=== PATIENT | female | born 1950 | race Caucasian/White ===

== ENCOUNTER 2020-06-07 15:18 | Emergency (ER) | payer MEDICARE, SELFPAY ==
--- NOTE | 2020-06-07 | CT_ITS ---
EXAMINATION: CT ABDOMEN AND PELVIS WITH CONTRAST CLINICAL INFORMATION: Abdominal pain / diarrhea history of diverticulitis, SBO COMPARISON: None. TECHNIQUE: Multidetector volumetric imaging was performed from the superior aspect of the liver through the pubic symphysis following administration of 100 mL Omnipaque 300 intravenous contrast. Sagittal and coronal reformatted images were obtained on the technologist workstation.. This CT examination was performed using dose optimization techniques as appropriate, variously including the following: *Automated exposure control *Adjustment of mA and/or kV according to patient size (this includes techniques or standardized protocols for targeted exams where dose is matched to indication/reason for exam; i.e. extremities or head) *Use of iterative reconstruction technique DLP: 625 mGy-cm FINDINGS: LUNG BASES: The visualized lung bases are unremarkable. LIVER, GALLBLADDER, AND BILIARY TREE: There is diffuse fatty infiltration of the liver but no focal hepatic lesion nor biliary ductal dilatation. Gallstone seen in the dependent portion of the otherwise unremarkable gallbladder. PANCREAS: Unremarkable. SPLEEN: Unremarkable. ADRENAL GLANDS: Unremarkable. KIDNEYS AND URETERS: The kidneys are normal in size, shape, and attenuation. No hydronephrosis, hydroureter, or calculi seen. No perinephric stranding. BLADDER: Unremarkable. GASTROINTESTINAL TRACT: There is scattered colonic diverticulosis more so in the sigmoid colon. No focal colonic wall thickening or pericolonic inflammatory changes to suggest diverticulitis. Visualized small bowel is essentially unremarkable. Incidental duodenal diverticula in the second portion of the duodenum. ABDOMINAL WALL: Mild vascular calcification within the aorta LYMPHOVASCULAR STRUCTURES: Minimal vascular calcification within the aorta iliac system. No bulky adenopathy. PELVIC VISCERA: Unremarkable. OSSEOUS STRUCTURES: Unremarkable. IMPRESSION: Diffuse fatty infiltration the liver. Incidental gallstones. Diverticulosis. No acute intra-abdominal process seen.
[2020-06-07 15:37] VITALS: BP 160/64; PULSE 56; RESP 18; TEMP 36; O2SAT 96; BMI 33.5
--- NOTE | 2020-06-07 16:58 | ED.ABDPAIN ---
HPI - Abdominal Pain General Chief Complaint: Abdominal Pain <Mark Monteiro NP - Last Filed: 06/07/20 20:59> Stated Complaint: ABD PAIN <Mark Monteiro NP - Last Filed: 06/07/20 20:59> Time Seen by Provider: 06/07/20 16:57 <Mark Monteiro NP - Last Filed: 06/07/20 20:59> History of Present Illness HPI narrative: This is a pleasant 70-year-old female with past medical history that is significant for remote cardiac ablation around 2009 for SVT, history of SBO couple times in her teen years and early 20s requiring resection and history of recurrent diverticulitis presenting ambulatory via triage with complaint of diffuse lower abdominal pain going on for past several weeks she initially saw her primary care doctor for this was given a course of antibiotics several weeks ago thinking that maybe diverticulitis however the pain has persisted not gotten any better. Had a phone visit with the primary care doctor advised to come to the emergency room. She denies any fever chills. Positive diarrhea. No vomiting. No recent travel or sick contacts. <Mark Monteiro NP - Last Filed: 06/07/20 20:59> MD elicited complaint: abdominal pain <Mark Monteiro NP - Last Filed: 06/07/20 20:59> Pertinent past history: diverticulitis <Mark Monteiro NP - Last Filed: 06/07/20 20:59> Onset (ago): week(s) <Mark Monteiro NP - Last Filed: 06/07/20 20:59> Pain Consistency: constant <Mark Monteiro NP - Last Filed: 06/07/20 20:59> Location: diffuse <Mark Monteiro NP - Last Filed: 06/07/20 20:59> Severity: moderate <Mark Monteiro NP - Last Filed: 06/07/20 20:59> Quality: cramping <Mark Monteiro NP - Last Filed: 06/07/20 20:59> Radiation: none <Mark Monteiro NP - Last Filed: 06/07/20 20:59> Migration to: no migration <Mark Monteiro NP - Last Filed: 06/07/20 20:59> Exacerbating factors: nothing <Mark Monteiro NP - Last Filed: 06/07/20 20:59> Relieving factors: nothing <Mark Monteiro NP - Last Filed: 06/07/20 20:59> Related Data Home Medications: Previous Rx's Medication Instructions Recorded dicyclomine 20 mg PO BID PRN #14 tab 06/07/20 loperamide [Imodium A-D] 2 mg PO Q6H PRN #7 cap 06/07/20 <Mark Monteiro NP - Last Filed: 06/07/20 20:59> Allergies/Adverse Reactions: Allergies Allergy/AdvReac Type Severity Reaction Status Date / Time erythromycin base Allergy Mild HIVES Verified 06/07/20 15:43 [Erythromycin Base] Penicillins Allergy Mild HIVES Verified 06/07/20 15:43 metronidazole [Flagyl] Allergy Unknown nausea and Verified 10/03/17 00:00 vomiting penicillin V Allergy Unknown Hives Verified 10/03/17 00:00 <Mark Monteiro NP - Last Filed: 06/07/20 20:59> Review of Systems Review of Systems Constitutional: No Weight loss, No Fever, No Chills, No Night Sweats, No Fatigue, No Malaise ENT/Mouth: No Hearing loss, No Ear Pain, No Nasal Congestion, No Sinus Pain, No Hoarseness, No sore throat, No Rhinorrhea, No Swallowing Difficulty Eyes: No Eye Pain, No Swelling, No Redness, No Foreign Body, No Discharge, No Vision Changes Cardiovascular: No Chest Pain, No SOB, No Dyspnea on Exertion, No Orthopnea, No Edema, No Palpitations Respiratory: No Cough, No Sputum, No Wheezing, No Smoke Exposure, No Dyspnea Gastrointestinal: No Nausea, No Vomiting, + Diarrhea, No Constipation, + abdominal Pain, No Hematochezia, No Melena Genitourinary: no irregular bleeding, No Dysuria, No Urinary Frequency, No Hematuria, No Urinary Incontinence, No Urgency, No Flank Pain, No Urinary Flow Changes, No Hesitancy Musculoskeletal: No joint pain, No Myalgias, No Joint Swelling Skin: No Skin Lesions, No rash Neuro: No Weakness, No Numbness, No Paresthesias, No Loss of Consciousness, No Dizziness, No Headache Psych: No Anxiety/Panic, No Depression, No SI/HI/AH/VH, No Social Issues, Heme/Lymph: No Bruising, No Bleeding,No Lymphadenopathy Endocrine: No Polyuria, No Polydipsia, No Temperature Intolerance <Mark Monteiro NP - Last Filed: 06/07/20 20:59> Yes all other systems are reviewed and are negative <Mark Monteiro NP - Last Filed: 06/07/20 20:59> Constitutional: Reports as per HPI <Mark Monteiro NP - Last Filed: 06/07/20 20:59> Physical Exam Vital Signs and I&O and Narrative: Vital Signs and I&O: Vital Signs Temp 97.8 F 06/07/20 20:00 Pulse 57 06/07/20 20:00 Resp 16 06/07/20 20:00 BP 141/53 H 06/07/20 20:00 Pulse Ox 94 06/07/20 20:00 Intake & Output 06/07/20 06/07/20 06/08/20 06:59 18:59 06:59 Intake Total 1000 / 1000 Balance 1000 / 1000 Weight 86 kg Intake: Intake, IV Amoun t 1000 / 1000 0.9 % Sodium C hloride 1,000 ml 1000 / 1000 @ 999 mls/hr I VCONT .Q1H1M MADELAINE Rx#:[id number] Body Mass Index 33.5 <Mark Monteiro NP - Last Filed: 06/07/20 20:59> Vital Signs and I&O: Vital Signs Temp 97.8 F 06/07/20 20:00 Pulse 57 06/07/20 20:00 Resp 16 06/07/20 20:00 BP 141/53 H 06/07/20 20:00 Pulse Ox 94 06/07/20 20:00 Intake & Output 06/07/20 06/07/20 06/08/20 06:59 18:59 06:59 Intake Total 1000 / 1000 Balance 1000 / 1000 Weight 86 kg Intake: Intake, IV Amoun t 1000 / 1000 0.9 % Sodium C hloride 1,000 ml 1000 / 1000 @ 999 mls/hr I VCONT .Q1H1M MADELAINE Rx#:[id number] Body Mass Index 33.5 <Lebron Fernandez DO - Last Filed: 06/08/20 02:25> reviewed <Mark Monteiro NP - Last Filed: 06/07/20 20:59> Const: General: cooperative and healthy appearing; No acute distress or intoxicated appearing <[facility] Monteiro [facility] Last Filed: 06/07/20 20:59> Nutritional Appearance: average body habitus <[facility] Thania [facility] Last Filed: 06/07/20 20:59> Orientation/consciousness: patient oriented x3 <[facility] Monteiro [facility] Last Filed: 06/07/20 20:59> HENMT: Head: Yes normal to inspection <[facility] Monteiro, [facility] Last Filed: 06/07/20 20:59> Ears: hearing grossly normal bilaterally [facility] Last Filed: 06/07/20 20:59> Eyes: General: appearance normal, both eyes and all related structures <[facility] Monteiro, [facility] Last Filed: 06/07/20 20:59> Visual Valera: normal visual valera by confrontation <[facility] Monteiro, [facility] Last Filed: 06/07/20 20:59> Neck: Neck: Yes normal visual inspection <[facility] Monteiro, [facility] Last Filed: 06/07/20 20:59> Thyroid: Thyroid normal <[facility] Last Filed: 06/07/20 20:59> Chest: Chest palpation & inspection: normal inspection of the chest <[facility] Thania [facility] Last Filed: 06/07/20 20:59> Resp: Effort & Inspection: normal respiratory effort <[facility] Monteiro, [facility] Last Filed: 06/07/20 20:59> Cardio: Jugular venous distension: no JVD <[facility] Thania [facility] Last Filed: 06/07/20 20:59> GI: Inspection: Yes normal to inspection <[facility] Monteiro, [facility] Last Filed: 06/07/20 20:59> Percussion: Yes normal to percussion <[facility] Last Filed: 06/07/20 20:59> Auscultation: normal bowel sounds <[facility] Last Filed: 06/07/20 20:59> : General: Yes no CVA tenderness <[facility] Thania [facility] Last Filed: 06/07/20 20:59> Back/Spine/Pelvis: Back: no CVA tenderness <[facility] Thania [facility] Last Filed: 06/07/20 20:59> Skin: General skin exam: no rashes or lesions noted <Mark Monteiro NP - Last Filed: 06/07/20 20:59> Neuro: General: patient oriented x3 <Mark Monteiro NP - Last Filed: 06/07/20 20:59> Extrem: General: Yes normal to inspection <Mark Monteiro NP - Last Filed: 06/07/20 20:59> Course Reevaluation(s) Reevaluation #1: Labs overall stable. No leukocytosis. H&H stable. No acute electrolyte derangement. Renal function intact. Resting comfortably has had her abdominal /pelvis CT with IV contrast. Await results. <Mark Monteiro NP - Last Filed: 06/07/20 20:59> Reevaluation #2: CT findings reviewed. Has not had any diarrhea here. Stool sample ordered in computer will give her cup to provide for outpatient ordered. Will follow up with her GI tomorrow. Rx for Bentyl sent to her pharmacy. <Mark Monteiro NP - Last Filed: 06/07/20 20:59> MDM - Abdominal Pain MDM Narrative Medical decision making narrative: Hemodynamically stable. No signs or symptoms of systemic infection. Workup as follow. full re-evaluate and dispo per plan. <Mark Monteiro NP - Last Filed: 06/07/20 20:59> Differential Diagnosis Differential diagnosis: Likely abdominal pain, diverticulitis and gastroenteritis; Unlikely aortic dissection, acute appendicitis, bowel perforation, calculus of kidney, constipation, endometriosis, gastritis, mesenteric ischemia, ovarian cyst, pancreatitis, peptic ulcer disease, renal colic and small bowel obstruction <Mark Monteiro NP - Last Filed: 06/07/20 20:59> Medical Records Attestation: I reviewed the patient's medical records. <Mark Monteiro NP - Last Filed: 06/07/20 20:59> Lab Data Result diagrams: : 06/07/20 17:05 06/07/20 18:21 <Mark Monteiro NP - Last Filed: 06/07/20 20:59> Labs: Lab Results 06/07/20 06/07/20 06/07/20 Range/Units 17:05 17:05 17:05 WBC 7.6 (4.8-10.8) X10*3/uL RBC 4.78 (4.20-5.50) X10*6/uL Hgb 15.3 (12.0-16.0) g/dl Hct 44.2 (37-47) % MCV 92.5 (80-98) fL MCH 32.0 (27.0-33.0) pg MCHC 34.6 (31.0-35.0) g/dl RDW 12.4 (11.0-16.0) % Plt Count 212 (160-400) X10*3/uL MPV 10.7 (9.4-12.3) fL Immature Gran % (Auto) 0.3 (0.0-0.4) % Neut % (Auto) 63.7 (45-73) % Lymph % (Auto) 27.5 (20-40) % Rhea % (Auto) 6.2 (2-11) % Eos % (Auto) 1.6 (0-4) % Baso % (Auto) 0.7 (0-2) % Lymph # (Auto) 2.1 (1.2-4.9) X10*3/uL Rhea # (Auto) 0.5 (0.1-1.2) X10*3/uL Eos # (Auto) 0.1 (0.0-0.4) X10*3/uL Baso # (Auto) 0.1 (0.0-0.2) X10*3/uL Abs Immat Gran (auto) 0.02 (0.00-0.03) X10*3/uL Absolute Neuts (auto) 4.8 (2.0-8.3) X10*3/uL Absolute Nucleated RBC 0.000 (0.0-0.012) X10*3/uL Nucleated RBC % (auto) 0.0 (0.0-0.2) /100WBC Sodium Cancelled Potassium Cancelled Chloride Cancelled Carbon Dioxide Cancelled Anion Gap Cancelled BUN Cancelled Creatinine Cancelled Estim Creat Clear Calc Cancelled Estimated GFR Cancelled Random Glucose Cancelled Lactic Acid 1.7 (0.5-2.0) mmol/L Calcium Cancelled Total Bilirubin Cancelled Direct Bilirubin Cancelled AST Cancelled ALT Cancelled Alkaline Phosphatase Cancelled Total Protein Cancelled Albumin Cancelled Lipase Cancelled Urine Color Urine Appearance Urine pH (5.0-8.0) Ur Specific Jackson (1.005-1.025) Urine Protein (NEG-TRACE) MG/DL Urine Glucose (UA) (NEG) MG/DL Urine Ketones (NEG) MG/DL Urine Blood (NEG) Urine Nitrite (NEG) Ur Leukocyte Esterase (NEG) 06/07/20 06/07/20 Range/Units 17:11 18:21 WBC (4.8-10.8) X10*3/uL RBC (4.20-5.50) X10*6/uL Hgb (12.0-16.0) g/dl Hct (37-47) % MCV (80-98) fL MCH (27.0-33.0) pg MCHC (31.0-35.0) g/dl RDW (11.0-16.0) % Plt Count (160-400) X10*3/uL MPV (9.4-12.3) fL Immature Gran % (Auto) (0.0-0.4) % Neut % (Auto) (45-73) % Lymph % (Auto) (20-40) % Rhea % (Auto) (2-11) % Eos % (Auto) (0-4) % Baso % (Auto) (0-2) % Lymph # (Auto) (1.2-4.9) X10*3/uL Rhea # (Auto) (0.1-1.2) X10*3/uL Eos # (Auto) (0.0-0.4) X10*3/uL Baso # (Auto) (0.0-0.2) X10*3/uL Abs Immat Gran (auto) (0.00-0.03) X10*3/uL Absolute Neuts (auto) (2.0-8.3) X10*3/uL Absolute Nucleated RBC (0.0-0.012) X10*3/uL Nucleated RBC % (auto) (0.0-0.2) /100WBC Sodium 141 Potassium 4.2 Chloride 105 Carbon Dioxide 27 Anion Gap 13 BUN 9 Creatinine 0.73 Estim Creat Clear Calc 76.6 Estimated GFR > 60 Random Glucose 85 Lactic Acid (0.5-2.0) mmol/L Calcium 8.9 Total Bilirubin 0.5 Direct Bilirubin 0.2 AST 22 ALT 35 H Alkaline Phosphatase 60 Total Protein 5.9 L Albumin 3.8 Lipase 34 Urine Color YELLOW Urine Appearance CLEAR Urine pH 5.5 (5.0-8.0) Ur Specific Jackson 1.015 (1.005-1.025) Urine Protein NEG (NEG-TRACE) MG/DL Urine Glucose (UA) NEG (NEG) MG/DL Urine Ketones NEG (NEG) MG/DL Urine Blood NEG (NEG) Urine Nitrite NEG (NEG) Ur Leukocyte Esterase NEG (NEG) <Mark Monteiro MENTAL HEALTH NURSE PRACTITIONER - Last Filed: 06/07/20 20:59> Lab Results 06/07/20 06/07/20 06/07/20 Range/Units 17:05 17:05 17:05 WBC 7.6 (4.8-10.8) X10*3/uL RBC 4.78 (4.20-5.50) X10*6/uL Hgb 15.3 (12.0-16.0) g/dl Hct 44.2 (37-47) % MCV 92.5 (80-98) fL MCH 32.0 (27.0-33.0) pg MCHC 34.6 (31.0-35.0) g/dl RDW 12.4 (11.0-16.0) % Plt Count 212 (160-400) X10*3/uL MPV 10.7 (9.4-12.3) fL Immature Gran % (Auto) 0.3 (0.0-0.4) % Neut % (Auto) 63.7 (45-73) % Lymph % (Auto) 27.5 (20-40) % Rhea % (Auto) 6.2 (2-11) % Eos % (Auto) 1.6 (0-4) % Baso % (Auto) 0.7 (0-2) % Lymph # (Auto) 2.1 (1.2-4.9) X10*3/uL Rhea # (Auto) 0.5 (0.1-1.2) X10*3/uL Eos # (Auto) 0.1 (0.0-0.4) X10*3/uL Baso # (Auto) 0.1 (0.0-0.2) X10*3/uL Abs Immat Gran (auto) 0.02 (0.00-0.03) X10*3/uL Absolute Neuts (auto) 4.8 (2.0-8.3) X10*3/uL Absolute Nucleated RBC 0.000 (0.0-0.012) X10*3/uL Nucleated RBC % (auto) 0.0 (0.0-0.2) /100WBC Sodium Cancelled Potassium Cancelled Chloride Cancelled Carbon Dioxide Cancelled Anion Gap Cancelled BUN Cancelled Creatinine Cancelled Estim Creat Clear Calc Cancelled Estimated GFR Cancelled Random Glucose Cancelled Lactic Acid 1.7 (0.5-2.0) mmol/L Calcium Cancelled Total Bilirubin Cancelled Direct Bilirubin Cancelled AST Cancelled ALT Cancelled Alkaline Phosphatase Cancelled Total Protein Cancelled Albumin Cancelled Lipase Cancelled Urine Color Urine Appearance Urine pH (5.0-8.0) Ur Specific Jackson (1.005-1.025) Urine Protein (NEG-TRACE) MG/DL Urine Glucose (UA) (NEG) MG/DL Urine Ketones (NEG) MG/DL Urine Blood (NEG) Urine Nitrite (NEG) Ur Leukocyte Esterase (NEG) 06/07/20 06/07/20 Range/Units 17:11 18:21 WBC (4.8-10.8) X10*3/uL RBC (4.20-5.50) X10*6/uL Hgb (12.0-16.0) g/dl Hct (37-47) % MCV (80-98) fL MCH (27.0-33.0) pg MCHC (31.0-35.0) g/dl RDW (11.0-16.0) % Plt Count (160-400) X10*3/uL MPV (9.4-12.3) fL Immature Gran % (Auto) (0.0-0.4) % Neut % (Auto) (45-73) % Lymph % (Auto) (20-40) % Rhea % (Auto) (2-11) % Eos % (Auto) (0-4) % Baso % (Auto) (0-2) % Lymph # (Auto) (1.2-4.9) X10*3/uL Rhea # (Auto) (0.1-1.2) X10*3/uL Eos # (Auto) (0.0-0.4) X10*3/uL Baso # (Auto) (0.0-0.2) X10*3/uL Abs Immat Gran (auto) (0.00-0.03) X10*3/uL Absolute Neuts (auto) (2.0-8.3) X10*3/uL Absolute Nucleated RBC (0.0-0.012) X10*3/uL Nucleated RBC % (auto) (0.0-0.2) /100WBC Sodium 141 Potassium 4.2 Chloride 105 Carbon Dioxide 27 Anion Gap 13 BUN 9 Creatinine 0.73 Estim Creat Clear Calc 76.6 Estimated GFR > 60 Random Glucose 85 Lactic Acid (0.5-2.0) mmol/L Calcium 8.9 Total Bilirubin 0.5 Direct Bilirubin 0.2 AST 22 ALT 35 H Alkaline Phosphatase 60 Total Protein 5.9 L Albumin 3.8 Lipase 34 Urine Color YELLOW Urine Appearance CLEAR Urine pH 5.5 (5.0-8.0) Ur Specific Jackson 1.015 (1.005-1.025) Urine Protein NEG (NEG-TRACE) MG/DL Urine Glucose (UA) NEG (NEG) MG/DL Urine Ketones NEG (NEG) MG/DL Urine Blood NEG (NEG) Urine Nitrite NEG (NEG) Ur Leukocyte Esterase NEG (NEG) <Lebron Fernandez, - Last Filed: 06/08/20 02:25> Imaging Data Abdomen/pelvis CT with IV contrast: Radiologist's impression: [place] [id number] CT Scan Report Signed Patient: Moira Oconnell [facility]#: [id number] : 2Acct:[id number] Age/Sex: 70 / FADM Date: 06/07/20 Loc: HO.ED Attending Dr: Ordering Physician: Mark Monteiro NP Date of Service: 06/07/20 Procedure(s): CT abdomen pelvis w con Accession Number(s): [id number] cc: ~ EXAMINATION: CT ABDOMEN AND PELVIS WITH CONTRAST CLINICAL INFORMATION: Abdominal pain / diarrhea history of diverticulitis, SBO COMPARISON: None. TECHNIQUE: Multidetector volumetric imaging was performed from the superior aspect of the liver through the pubic symphysis following administration of 100 mL Omnipaque 300 intravenous contrast. Sagittal and coronal reformatted images were obtained on the technologist workstation.. This CT examination was performed using dose optimization techniques as appropriate, variously including the following: *Automated exposure control *Adjustment of mA and/or kV according to patient size (this includes techniques or standardized protocols for targeted exams where dose is matched to indication/reason for exam; i.e. extremities or head) *Use of iterative reconstruction technique DLP: 625 mGy-cm FINDINGS: LUNG BASES: The visualized lung bases are unremarkable. LIVER, GALLBLADDER, AND BILIARY TREE: There is diffuse fatty infiltration of the liver but no focal hepatic lesion nor biliary ductal dilatation. Gallstone seen in the dependent portion of the otherwise unremarkable gallbladder. PANCREAS: Unremarkable. SPLEEN: Unremarkable. ADRENAL GLANDS: Unremarkable. KIDNEYS AND URETERS: The kidneys are normal in size, shape, and attenuation. No hydronephrosis, hydroureter, or calculi seen. No perinephric stranding. BLADDER: Unremarkable. GASTROINTESTINAL TRACT: There is scattered colonic diverticulosis more so in the sigmoid colon. No focal colonic wall thickening or pericolonic inflammatory changes to suggest diverticulitis. Visualized small bowel is essentially unremarkable. Incidental duodenal diverticula in the second portion of the duodenum. ABDOMINAL WALL: Mild vascular calcification within the aorta LYMPHOVASCULAR STRUCTURES: Minimal vascular calcification within the aorta iliac system. No bulky adenopathy. PELVIC VISCERA: Unremarkable. OSSEOUS STRUCTURES: Unremarkable. IMPRESSION: Diffuse fatty infiltration the liver. Incidental gallstones. Diverticulosis. No acute intra-abdominal process seen. Dictated By:JERE HANNAH MD Signed By:<Electronically signed by JERE HANNAH MD in OV>06/07/201957 DD/ 43 TD/TT: Prenatal Genetic Counselor: KELVIN <Mark Monteiro NP - Last Filed: 06/07/20 20:59> Discharge Plan Discharge Clinical Impression: Abdominal pain, Diarrhea <MAAME Yanez Last Filed: 06/07/20 20:59> Patient Disposition: Home, Self-Care <Mark Monteiro NP - Last Filed: 06/07/20 20:59> Instructions: Acute Diarrhea (ED), Abdominal Pain (ED) <MAAME Yanez Last Filed: 06/07/20 20:59> Prescriptions: New dicyclomine 20 mg tablet 20 mg PO BID PRN (Reason: abdominal pain) Qty: 14 RF: 0 loperamide [Imodium A-D] 2 mg capsule 2 mg PO Q6H PRN (Reason: loose stool) Qty: 7 RF: 0 <Mark Monteiro NP - Last Filed: 06/07/20 20:59> Referrals: Edin Ureña [Physician] - 2 days Phillip Frazier MD [Primary Care Provider] - 1 week <Mark Monteiro NP - Last Filed: 06/07/20 20:59> Interventions: ED Discharge Assessment Last Done: 06/07/20 21:07 <Mark Monteiro NP - Last Filed: 06/07/20 20:59> Discharge Date/Time: 06/07/20 21:10 <Mark Monteiro NP - Last Filed: 06/07/20 20:59> [facility] Past Medical History Attestation statement: The following information was validated with the patient. <Mark Monteiro NP - Last Filed: 06/07/20 20:59> Medical History: Medical History (Updated 06/08/20 @ 00:00 by Den Mckinney) Bowel obstruction Diverticulitis Postoperative intestinal obstruction <Mark Monteiro NP - Last Filed: 06/07/20 20:59> Surgical History: Surgical History (Updated 06/07/20 @ 15:42 by Jayda Nova) History of cardiac radiofrequency ablation <Mark Monteiro NP - Last Filed: 06/07/20 20:59> Social History Social History: Social History Smoking Status: Current every day smoker Substance Use Type: Marijuana Substance Use Frequency: Occasionally Advance Directives: No Advance Directives Information Provided: Yes <Mark Monteiro NP - Last Filed: 06/07/20 20:59>
[2020-06-07 17:14] LABS: MANUAL DIFF FLAG NO
[2020-06-07 17:18] VITALS: BP 154/67; PULSE 53; RESP 17
[2020-06-07 17:20] LABS: Basophils Absolute Auto 0.1 X10*3/uL (0.0-0.2); Basophils Percent Auto 0.7 % (0-2); Eosinophils Absolute Auto 0.1 X10*3/uL (0.0-0.4); Eosinophils Percent Auto 1.6 % (0-4); Hematocrit 44.2 % (37-47); Hemoglobin 15.3 g/dl (12.0-16.0); Imm Gran Abs Auto 0.02 X10*3/uL (0.00-0.03); Imm Gran Pct Auto 0.3 % (0.0-0.4); Lymphocytes Absolute Auto 2.1 X10*3/uL (1.2-4.9); Lymphocytes Percent Auto 27.5 % (20-40); Mean Corpuscular HGB Conc 34.6 g/dl (31.0-35.0); Mean Corpuscular Volume 92.5 fL (80-98); Mean Platelet Volume 10.7 fL (9.4-12.3); Monocytes Absolute Auto 0.5 X10*3/uL (0.1-1.2); Monocytes Percent Auto 6.2 % (2-11); Neutrophils Absolute Auto 4.8 X10*3/uL (2.0-8.3); Neutrophils Percent Auto 63.7 % (45-73); Platelet Count 212 X10*3/uL (160-400); Red Blood Count 4.78 X10*6/uL (4.20-5.50); Red Cell Distribution Width 12.4 % (11.0-16.0); White Blood Count 7.6 X10*3/uL (4.8-10.8)
[2020-06-07] MEDS: 0.9 % Sodium Chloride 1,000 ML 999 ML IVCONT (17:23)
[2020-06-07 17:32] LABS: Glucose Urine UA NEG (NEG); Leukocyte Esterase Urine NEG (NEG); Nitrite Urine NEG (NEG); PH 5.5 (5.0-8.0); Specific Gravity - Urine 1.015 (1.005-1.025); Urine Blood NEG (NEG); Urine Ketones NEG (NEG); Urine Protein NEG (NEG-TRACE)
[2020-06-07 17:34] LABS: Lactic Acid 1.7 mmol/L (0.5-2.0)
[2020-06-07 17:37] LABS: Appearance Urine CLEAR; Color Urine YELLOW
[2020-06-07 18:55] LABS: Alanine Aminotransferase 35 U/L (0-31); Albumin Level 3.8 g/dL (3.5-5.0); Alkaline Phosphatase 60 U/L (39-117); Anion Gap 13 (12-20); Aspartate Amino Transferase 22 U/L (5-31); Bilirubin Direct 0.2 mg/dL (0.0-0.5); Bilirubin Total 0.5 mg/dL (0.0-1.0); Blood Urea Nitrogen 9 mg/dL (9-16); Calcium 8.9 mg/dL (8.4-10.2); Carbon Dioxide 27 mmol/L (22-29); Chloride 105 mmol/L (96-108); Creatinine Clr Calc Pharmacy 76.6; Estimated Glomerular Filt Rate > 60; Glucose Random 85 mg/dL (60-115); Lipase 34 U/L (8-78); Potassium 4.2 mmol/l (3.3-5.1); Sodium 141 mmol/L (135-145); Total Protein 5.9 g/dL (6.5-8.0)
[2020-06-07] MEDS: iohexoL 350 MG/ML 100 ML INFUS..BTL IV (19:48)
[2020-06-07 20:00] VITALS: BP 141/53; PULSE 57; RESP 16; TEMP 36.6; O2SAT 94
== END 2020-06-07 21:10 | disposition home or self-care (01) ==
PROVIDERS: Nurse Practitioner Primary Care; Emergency Provider Emergency Medicine; PCP Family Medicine
DX: R10.9 Unspecified abdominal pain (principal); R19.7 Diarrhea, unspecified
CPT/HCPCS: 36415; 74177; 80048; 80076; 81003; 83605; 83690; 85025; 96360; 99284

== ENCOUNTER 2020-06-29 13:19 | Outpatient (REF) | payer MEDICARE, SELFPAY | END 2020-06-29 13:20 | disposition home or self-care (01) | LOC: HO.LAB 13:19 | PROVIDERS: Visit Provider Internal Medicine | DX: Z20.828 Contact with and (suspected) exposure to other viral communicable diseases (principal) | CPT/HCPCS: 87635 ==

== ENCOUNTER 2020-12-13 13:55 | Outpatient (REF) | payer MEDICARE, SELFPAY ==
[2020-12-13 15:32] LABS: COVID-19 Test Negative (Negative)
== END 2020-12-13 13:56 | disposition home or self-care (01) ==
LOC: HO.LAB 13:55
PROVIDERS: Visit Provider Internal Medicine
DX: Z20.822 Contact with and (suspected) exposure to COVID-19 (principal)
CPT/HCPCS: 36415; 87635; C9803

== ENCOUNTER 2021-02-07 09:15 | Outpatient (REF) | payer MEDICARE, SELFPAY ==
--- NOTE | ~2021-02-07 | CT_ITS ---
EXAMINATION: CT ABDOMEN AND PELVIS WITH CONTRAST CLINICAL INFORMATION: Abdominal pain. Rule out diverticulitis. COMPARISON: Previous CT of the abdomen and pelvis June 2020 TECHNIQUE: Multidetector volumetric images were obtained from the superior aspect of the liver through the pubic symphysis following administration 85 mL of Omnipaque 350 intravenous contrast. Sagittal and coronal reformatted images were obtained on the technologist's workstation. Oral contrast: Yes This CT examination was performed using dose optimization techniques as appropriate, variously including the following: *Automated exposure control *Adjustment of mA and/or kV according to patient size (this includes techniques or standardized protocols for targeted exams where dose is matched to indication/reason for exam; i.e. extremities or head) *Use of iterative reconstruction technique DLP: 433 mGy-cm FINDINGS: LUNG BASES: The visualized lung bases are unremarkable. LIVER, GALLBLADDER, AND BILIARY TREE: The liver is low in attenuation suggestive of fatty infiltration. No focal liver lesion is seen. There are gallstones in the gallbladder. There is no biliary duct dilatation.. PANCREAS: Unremarkable. SPLEEN: Unremarkable. ADRENAL GLANDS: Unremarkable. KIDNEYS AND URETERS: The kidneys are normal in size, shape, and attenuation. No hydronephrosis, hydroureter, or calculi seen. No perinephric stranding. BLADDER: Not optimally distended. GASTROINTESTINAL TRACT: There is diverticulosis of the small bowel and colon. No evidence of diverticulitis is seen. The small and large bowel are otherwise unremarkable. The appendix is not identified. ABDOMINAL WALL: There is a small umbilical hernia containing fat. LYMPH NODES: Normal. VASCULAR: Unremarkable. PELVIC VISCERA: There is a small 1 cm high attenuation or enhancing area in the posterior body of the uterus questionable for a fibroid. Uterus and adnexa are otherwise unremarkable. OSSEOUS STRUCTURES: Unremarkable. CT/CT abdomen pelvis w con IMPRESSION: Diverticulosis of the small and large bowel. No evidence of diverticulitis. Fatty liver. Gallstones.
[2021-02-07 10:20] LABS: Blood Urea Nitrogen 7 mg/dL (9-16); Estimated Glomerular Filt Rate > 60
[2021-02-07] MEDS: iohexoL 350 MG/ML 100 ML INFUS..BTL 85 ML IV (11:48)
== END 2021-02-07 09:16 | disposition home or self-care (01) ==
LOC: HO.CT 09:15
PROVIDERS: PCP Family Medicine; Visit Provider Nurse Practitioner Family
DX: R10.9 Unspecified abdominal pain (principal); K57.50 Diverticulosis of both small and large intestine without perforation or abscess without bleeding
CPT/HCPCS: 36415; 74177; 82565; 84520; Q9967

== ENCOUNTER 2024-01-07 15:00 | Outpatient (AMB) | payer MEDICARE, SELFPAY ==
--- NOTE | 2024-01-07 15:04 | MHC.OFFVIS ---
Vital Signs 01/07/24 15:14 Height 5 ft 3 in Weight 181 lb BMI 32.1 BP 141/71 H Blood Pressure Location Rt brachial Position Sitting Pulse 52 Intake Visit Reasons: Gallstones Intake Note: Patient referred for gallstones accidental finding in recent chest x-ray. Patient c/o: denies pain. Refer to [facility] Chest CT: 12-10-23. Geography Department Chair Required: No Accompanied by: Self / Same As Patient Allergies erythromycin base [Erythromycin Base] Allergy (Mild, Verified 01/07/24 15:04) HIVES Penicillins Allergy (Mild, Verified 01/07/24 15:04) HIVES metronidazole [Flagyl] Allergy (Unknown, Verified 01/07/24 15:04) nausea and vomiting penicillin V Allergy (Unknown, Verified 01/07/24 15:04) Hives HPI Comments Details: Patient presents here for evaluation of incidentally found gallstones and umbilical hernia. Patient has no biliary symptoms. She has not had fatty food intolerance. She had no idea that she even had an umbilical hernia which is also not symptomatic. She otherwise tolerates a diet and has regular bowel habits. Chart was reviewed and patient evaluated [facility] Medical History (Updated 01/07/24 @ 15:13 by DAHIANA Mullins) Appendix abscess Abdominal hernia with obstruction Postoperative intestinal obstruction Diverticulitis Bowel obstruction Surgical History (Updated 01/07/24 @ 15:44 by Naga Morel MD) History of cardiac radiofrequency ablation Social History (Updated 01/07/24 @ 15:13 by DAHIANA Mullins) Alcohol intake: never Patient Tobacco Use Status: Never used Tobacco Substance Use Type: Marijuana Physical Exam Vital Signs: Last Vital Signs Pulse 52 01/07/24 15:14 BP 141/71 H 01/07/24 15:14 BMI result Body Mass Index 32.1 Const Other: Very pleasant female in no acute distress GI Other: Patient was examined both supine and standing with Valsalva. Moderately corpulent abdomen. Very small reducible umbilical hernia. Bilateral groin exam negative. Abdomen is otherwise benign Assessment & Plan Assessment & Plan (1) Asymptomatic gallstones: Code(s): K80.20 - Calculus of gallbladder without cholecystitis without obstruction Category: Surgical (2) Reducible umbilical hernia: Code(s): K42.9 - Umbilical hernia without obstruction or gangrene Category: Surgical Plan Patient has an asymptomatic umbilical hernia and asymptomatic gallstones. No surgical intervention is required at this time. Should the patient have any symptoms my of the 1 of these or any other surgical issues, she has been instructed to contact the office. Otherwise she will follow-up p.r.n.. All questions answered. Coding Level of Care Code New Pt Level 4 (19229) Diagnoses Asymptomatic gallstones K80.20 Reducible umbilical hernia K42.9
[2024-01-07 15:14] VITALS: BP 141/71; PULSE 52; BMI 32.1
== END 2024-01-07 15:49 | disposition home or self-care (01) ==
PROVIDERS: PCP Nurse Practitioner Family; Visit Provider Surgery
DX: K80.20 Calculus of gallbladder without cholecystitis without obstruction (principal); K42.9 Umbilical hernia without obstruction or gangrene
CPT/HCPCS: 99204

== ENCOUNTER → 2024-01-07 15:00 | Outpatient (BNVA) | payer MEDICARE, SELFPAY | PROVIDERS: PCP Nurse Practitioner Family; Visit Provider Surgery | DX: K80.20 Calculus of gallbladder without cholecystitis without obstruction (principal); K42.9 Umbilical hernia without obstruction or gangrene | CPT/HCPCS: 99202 ==

== ENCOUNTER 2024-02-17 14:53 | Outpatient (AMB) | payer MEDICARE, SELFPAY ==
[2024-02-17 15:09] VITALS: BP 122/70; PULSE 51; O2SAT 94; BMI 31.9
--- NOTE | 2024-02-17 15:09 | A.OFFVIS_ITS ---
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 The patient is a loco 73 year woman who is a former smoker presenting with worsening shortness of breath and hypoxia. Apparently back in November she was having a cough for some time. She was having some shortness breath. She went to see her primary care where she was noted to be hypoxic down to 90%. Then they called the ambulance and she was taken to [facility]. There she was actually hypoxic even down to the 80s. She was placed on 5 L of oxygen maintaining a pulse ox 96%. She was admitted to the hospital as part of the workup she did have a D-dimer that was negative. Therefore she did not need further evaluation for blood clot further evaluation. She did have a CT scan of the chest without contrast. I did review it personally with the patient. She did have some areas of airspace disease in the right base suggesting potential bronchopneumonia. Areas also has trace amount of pleural fluid. She did receive ceftriaxone azithromycin as far as treating her for lower respiratory infection and she was discharged off oxygen to home. During the hospitalization she also had an echocardiogram which reviewed which demonstrated a normal EF although she did have diastolic dysfunction 2+ and she also had borderline pulmonary hypertension. She does have significant daytime drowsiness and the patient does have evidence of sleep apnea. She does have cardiovascular risk factors in his sleep study is warranted at this time. During the office visit we also did go for brief walking oximetry and she did desaturate down to about 92% with activity. The patient does not qualify for oxygen which is reassuring this suggests the possibility of pulmonary vascular disease. On a side note she also was noted to have nasal polyps and she was referred to ENT and currently being evaluated for that. PFSH Medical History (Updated 02/17/24 @ 23:28 by Jorge L Mcmanus MD) SVT (supraventricular tachycardia) Nasal polyps Diastolic dysfunction Pulmonary hypertension Hypoxia Appendix abscess Abdominal hernia with obstruction Postoperative intestinal obstruction Diverticulitis Bowel obstruction Surgical History (Updated 01/07/24 @ 15:44 by Naga Morel MD) History of cardiac radiofrequency ablation Social History (Updated 01/07/24 @ 15:13 by DAHIANA Mullins) Alcohol intake: never Patient Tobacco Use Status: Never used Tobacco Substance Use Type: Marijuana Review of Systems Const Reports daytime sleepiness, Denies fever(s), Reports headache(s), Reports snoring and Reports stops breathing during sleep Eyes Reports no additional complaints ENT Reports headache(s), Reports nasal congestion, Reports nasal discharge and Reports nasal obstruction Card Denies chest pain and Reports dyspnea on exertion Resp Reports cough, Reports dyspnea on exertion, Reports snoring and Denies wheezing GI Reports no additional complaints Musc Reports no additional complaints Skin/Breast Denies rash Neuro Reports headache(s) Micky/Lymph Denies easy bleeding Aller/Immun Denies wheezing Physical Exam Vital Signs: Last Vital Signs Pulse 51 02/17/24 15:09 BP 122/70 02/17/24 15:09 Pulse Ox 94 02/17/24 15:09 Oxygen Delivery Method Room Air 02/17/24 15:09 BMI result Body Mass Index 31.9 Const General: comfortable HEENT Head: Yes normocephalic Neck Neck: Yes supple Chest Chest palpation & inspection: normal inspection of the chest Resp Effort & Inspection: normal respiratory effort Auscultation: clear to auscultation bilaterally Cardio Rate: regular rate Rhythm: regular rhythm Heart sounds: S1 normal heart sound present and S2 normal heart sound present GI Palpation (GI): Soft to palpation Skin General skin exam: no rashes or lesions noted Extrem General: No clubbing and No cyanosis Results Reviewed Results Reviewed: personally reviewed CT chest with airspace disease in the RLL with trace pleural effusion ECHO 2+diastolic dysfuction, boderline high PA pressures Assessment & Plan Assessment & Plan (1) Hypoxia: Code(s): R09.02 - Hypoxemia Category: Medical (2) ALDAIR (obstructive sleep apnea): Code(s): G47.33 - Obstructive sleep apnea (adult) (pediatric) Category: Medical (3) Pulmonary hypertension: Comment: boderline Code(s): I27.20 - Pulmonary hypertension, unspecified Category: Medical (4) Diastolic dysfunction: Code(s): I51.89 - Other ill-defined heart diseases Category: Medical (5) Reactive airway disease: Code(s): J45.909 - Unspecified asthma, uncomplicated Category: Medical Qualifiers: Asthma severity: moderate Asthma persistence: persistent Asthma complication type: uncomplicated Qualified Code(s): J45.40 - Moderate persistent asthma, uncomplicated (6) Nasal polyps: Code(s): J33.9 - Nasal polyp, unspecified Category: Medical Plan continue Breo PFTs Home PSG consider bubble study continue fluticasone nasal spray F/U 2-3 months Orders: Orders PFT pulmonary function test Today G47.33 - Obstructive sleep apnea (adult) (pediatric) RT home sleep study Today G47.33 - Obstructive sleep apnea (adult) (pediatric) Medications: New fluticasone propionate 50 mcg/actuation (Flonase Allergy Relief) administer into each nostril 2 sprays intranasal DAILY 30 days 15.8 mL 12RF Coding Level of Care Code New Pt Level 5 (33929) Diagnoses Hypoxia R09.02 ALDAIR (obstructive sleep apnea) G47.33 Pulmonary hypertension I27.20 Diastolic dysfunction I51.89 Moderate persistent reactive airway disease without complication J45.40 Asthma severity: moderate Asthma persistence: persistent Asthma complication type: uncomplicated Nasal polyps J33.9 Time Spent (min) 60
== END 2024-02-17 15:40 | disposition home or self-care (01) ==
PROVIDERS: PCP Nurse Practitioner Family; Referring Provider Nurse Practitioner Family; Visit Provider Hospitalist
DX: R09.02 Hypoxemia (principal); G47.33 Obstructive sleep apnea (adult) (pediatric); I27.20 Pulmonary hypertension, unspecified; J45.40 Moderate persistent asthma, uncomplicated; I51.89 Other ill-defined heart diseases; J33.9 Nasal polyp, unspecified
CPT/HCPCS: 99205

== ENCOUNTER → 2024-02-17 14:53 | Outpatient (BNVA) | payer MEDICARE, SELFPAY | PROVIDERS: PCP Nurse Practitioner Family; Referring Provider Nurse Practitioner Family; Visit Provider Hospitalist | DX: R09.02 Hypoxemia (principal); G47.33 Obstructive sleep apnea (adult) (pediatric); I27.20 Pulmonary hypertension, unspecified; I51.89 Other ill-defined heart diseases; J45.40 Moderate persistent asthma, uncomplicated; J33.9 Nasal polyp, unspecified | CPT/HCPCS: 99202 ==

== ENCOUNTER → 2024-04-05 14:54 | Outpatient (REF) | payer MEDICARE, SELFPAY | LOC: HO.SL 14:54 | PROVIDERS: PCP Family Medicine; Visit Provider Hospitalist | DX: G47.33 Obstructive sleep apnea (adult) (pediatric) (principal) | CPT/HCPCS: 95806 ==

== ENCOUNTER → 2024-04-06 15:12 | Outpatient (BNV) | payer MEDICARE, SELFPAY | PROVIDERS: PCP Family Medicine; Visit Provider Internal Medicine | DX: G47.33 Obstructive sleep apnea (adult) (pediatric) (principal) | CPT/HCPCS: 95806 ==

== ENCOUNTER 2024-05-27 14:05 | Outpatient (AMB) | payer MEDICARE, SELFPAY ==
--- NOTE | 2024-05-27 14:10 | MHC.OFFVIS ---
Vital Signs 05/27/24 14:11 Height 5 ft 3 in Weight 174 lb BMI 30.8 BP 120/72 Blood Pressure Location Lt brachial Position Sitting Pulse 44 L Pulse Source Pulse Oximeter Pulse Oximetry (%) 95 Oxygen Delivery Method Room Air Intake Visit Reasons: Hypoxia/SOB Seasonal Delivery Driver Required: No Allergies erythromycin base [Erythromycin Base] Allergy (Mild, Verified 05/27/24 14:16) HIVES Penicillins Allergy (Mild, Verified 05/27/24 14:16) HIVES metronidazole [Flagyl] Allergy (Unknown, Verified 05/27/24 14:16) nausea and vomiting penicillin V Allergy (Unknown, Verified 05/27/24 14:16) Hives HPI Comments Details: The patient is a loco 74 year woman who is a former smoker presenting with worsening shortness of breath and hypoxia. Apparently back in November she was having a cough for some time. She was having some shortness breath. She went to see her primary care where she was noted to be hypoxic down to 90%. Then they called the ambulance and she was taken to [facility]. There she was actually hypoxic even down to the 80s. She was placed on 5 L of oxygen maintaining a pulse ox 96%. She was admitted to the hospital as part of the workup she did have a D-dimer that was negative. Therefore she did not need further evaluation for blood clot further evaluation. She did have a CT scan of the chest without contrast. I did review it personally with the patient. She did have some areas of airspace disease in the right base suggesting potential bronchopneumonia. Areas also has trace amount of pleural fluid. She did receive ceftriaxone azithromycin as far as treating her for lower respiratory infection and she was discharged off oxygen to home. During the hospitalization she also had an echocardiogram which reviewed which demonstrated a normal EF although she did have diastolic dysfunction 2+ and she also had borderline pulmonary hypertension. She does have significant daytime drowsiness and the patient does have evidence of sleep apnea. She does have cardiovascular risk factors in his sleep study is warranted at this time. During the office visit we also did go for brief walking oximetry and she did desaturate down to about 92% with activity. The patient does not qualify for oxygen which is reassuring this suggests the possibility of pulmonary vascular disease. On a side note she also was noted to have nasal polyps and she was referred to ENT and currently being evaluated for that. 05/27/2024 the patient is here for a pulmonary follow-up visit. Overall the patient has been doing fairly well. She does have daytime drowsiness. Her [place] score is elevated 07/25. The patient also has evidence of pulmonary hypertension. She did have a sleep study. We did review it. She has severe sleep apnea based on the study. She has significant hypoxia during the study as well. Likely contributing to her pulmonary hypertension. Therefore, we talked about the gravity of the situation and for her to treat this condition as soon as possible. I am going to order a APAP from a [facility] locally. The patient will be set up as soon as possible. She has not had her pulmonary function studies as of yet. Overall she is doing okay. She still having dyspnea on exertion mild in severity. Will have her come back in 3 months so we can address how she is responding to the CPAP and also review her PFTs at that time. [facility] Medical History (Updated 05/27/24 @ 14:53 by Jorge L Mcmanus MD) SVT (supraventricular tachycardia) Nasal polyps Diastolic dysfunction Pulmonary hypertension Hypoxia Appendix abscess Abdominal hernia with obstruction Postoperative intestinal obstruction Diverticulitis Bowel obstruction Surgical History (Updated 01/07/24 @ 15:44 by Naga Morel MD) History of cardiac radiofrequency ablation Social History (Updated 05/27/24 @ 14:17 by DAHIANA Mark) Alcohol intake: never Patient Tobacco Use Status: Former Tobacco user Years Smoked: 55 Substance Use Type: Marijuana Review of Systems Const Reports daytime sleepiness, Denies fever(s), Reports headache(s), Reports snoring and Reports stops breathing during sleep Eyes Reports no additional complaints ENT Reports headache(s), Reports nasal congestion, Reports nasal discharge and Reports nasal obstruction Card Denies chest pain and Reports dyspnea on exertion Resp Reports cough, Reports dyspnea on exertion, Reports snoring and Denies wheezing GI Reports no additional complaints Musc Reports no additional complaints Skin/Breast Denies rash Neuro Reports headache(s) Micky/Lymph Denies easy bleeding Aller/Immun Denies wheezing Physical Exam Vital Signs: Last Vital Signs Pulse 44 L 05/27/24 14:11 BP 120/72 05/27/24 14:11 Pulse Ox 95 05/27/24 14:11 Oxygen Delivery Method Room Air 05/27/24 14:11 BMI result Body Mass Index 30.8 Const General: comfortable HEENT Head: Yes normocephalic Neck Neck: Yes supple Chest Chest palpation & inspection: normal inspection of the chest Resp Effort & Inspection: normal respiratory effort Auscultation: clear to auscultation bilaterally Cardio Rate: regular rate Rhythm: regular rhythm Heart sounds: S1 normal heart sound present and S2 normal heart sound present GI Palpation (GI): Soft to palpation Skin General skin exam: no rashes or lesions noted Extrem General: No clubbing and No cyanosis Assessment & Plan Assessment & Plan (1) Hypoxia: Code(s): R09.02 - Hypoxemia Category: Medical (2) ALDAIR (obstructive sleep apnea): Comment: severe Code(s): G47.33 - Obstructive sleep apnea (adult) (pediatric) Category: Medical (3) Pulmonary hypertension: Comment: emmettesther Code(s): I27.20 - Pulmonary hypertension, unspecified Category: Medical (4) Diastolic dysfunction: Code(s): I51.89 - Other ill-defined heart diseases Category: Medical (5) Reactive airway disease: Code(s): J45.909 - Unspecified asthma, uncomplicated Category: Medical Qualifiers: Asthma severity: moderate Asthma persistence: persistent Asthma complication type: uncomplicated Qualified Code(s): J45.40 - Moderate persistent asthma, uncomplicated (6) Nasal polyps: Code(s): J33.9 - Nasal polyp, unspecified Category: Medical Plan continue Breo PFTs start APAP, HORTENCIA consider bubble study continue fluticasone nasal spray F/U 2-3 months Coding Level of Care Code Est Pt Level 4 (40950) Diagnoses Hypoxia R09.02 ALDAIR (obstructive sleep apnea) G47.33 Pulmonary hypertension I27.20 Diastolic dysfunction I51.89 Moderate persistent reactive airway disease without complication J45.40 Asthma severity: moderate Asthma persistence: persistent Asthma complication type: uncomplicated Nasal polyps J33.9 Time Spent (min) 16
[2024-05-27 14:11] VITALS: BP 120/72; PULSE 44; O2SAT 95; BMI 30.8
== END 2024-05-27 14:43 | disposition home or self-care (01) ==
PROVIDERS: PCP Nurse Practitioner Family; Visit Provider Hospitalist
DX: R09.02 Hypoxemia (principal); G47.33 Obstructive sleep apnea (adult) (pediatric); I27.20 Pulmonary hypertension, unspecified; I51.89 Other ill-defined heart diseases; J45.40 Moderate persistent asthma, uncomplicated; J33.9 Nasal polyp, unspecified
CPT/HCPCS: 99214

== ENCOUNTER → 2024-05-27 14:05 | Outpatient (BNVA) | payer MEDICARE, SELFPAY | PROVIDERS: PCP Nurse Practitioner Family; Visit Provider Hospitalist | DX: J45.40 Moderate persistent asthma, uncomplicated (principal); J33.9 Nasal polyp, unspecified; I27.20 Pulmonary hypertension, unspecified; I51.89 Other ill-defined heart diseases; R09.02 Hypoxemia; G47.33 Obstructive sleep apnea (adult) (pediatric); Z99.81 Dependence on supplemental oxygen | CPT/HCPCS: 99212 ==

== ENCOUNTER 2024-06-02 15:01 | Outpatient (REF) | payer MEDICARE, SELFPAY ==
--- NOTE | 2024-06-02 15:58 | PFT_ITS ---
Flows: FEV1: 95 % of predicted at 1.98 L FVC: 100 % of predicted at 2.68 L FEV1/FVC: 74 % Bronchodilator response: Absent Volumes: Total lung capacity: 90 % of predicted at 4.33 L Residual volume: 86 % of predicted at 1.65 L Slow vital capacity: 95 % of predicted at 2.68 L Expiratory reserve volume: 59 % of predicted at 0.40 L Diffusion capacity: Normal Impression: No obstructive or restrictive ventilatory defect. No bronchodilator response. Normal pulmonary function test. MTDD
== END 2024-06-02 15:02 | disposition home or self-care (01) ==
LOC: HO.RESP 15:01
PROVIDERS: PCP Family Medicine; Visit Provider Hospitalist
DX: G47.33 Obstructive sleep apnea (adult) (pediatric) (principal)
CPT/HCPCS: 94640

== ENCOUNTER 2024-09-29 14:00 | Outpatient (REF) | payer MEDICARE, SELFPAY ==
--- OUTSIDE RECORDS SUMMARY | 2024-09-29 17:06 | XMS_ITS | Clinical Summary ---
Author Organization [facility] Address [address] [place] [address] Care Team Providers Care Supervisor Of Communications Name Role Phone Unavailable Primary Care Provider [...]
== END 2024-09-29 14:01 | disposition home or self-care (01) ==
LOC: HO.LNP 14:00
PROVIDERS: PCP Nurse Practitioner Family; Visit Provider Hospitalist
DX: R91.1 Solitary pulmonary nodule (principal)
CPT/HCPCS: 87070; 87205; 99212

== ENCOUNTER 2024-09-29 14:00 | Outpatient (AMB) | payer MEDICARE, SELFPAY ==
--- NOTE | 2024-09-29 14:06 | MHC.OFFVIS ---
Vital Signs 09/29/24 14:07 Height 5 ft 3 in Weight 168 lb 10.458 oz BMI 29.9 BP 118/74 Blood Pressure Location Rt brachial Position Sitting Pulse 48 L Pulse Source Pulse Oximeter Pulse Oximetry (%) 95 Oxygen Delivery Method Room Air Intake Visit Reasons: Hypoxia/PFT Follow Up Allergies erythromycin base [Erythromycin Base] Allergy (Mild, Verified 09/29/24 14:14) HIVES Penicillins Allergy (Mild, Verified 09/29/24 14:14) HIVES metronidazole [Flagyl] Allergy (Unknown, Verified 09/29/24 14:14) nausea and vomiting penicillin V Allergy (Unknown, Verified 09/29/24 14:14) Hives HPI Comments Details: The patient is a 74 year woman who is a former smoker presenting with worsening shortness of breath and hypoxia. Apparently back in November she was having a cough for some time. She was having some shortness breath. She went to see her primary care where she was noted to be hypoxic down to 90%. Then they called the ambulance and she was taken to [facility]. There she was actually hypoxic even down to the 80s. She was placed on 5 L of oxygen maintaining a pulse ox 96%. She was admitted to the hospital as part of the workup she did have a D-dimer that was negative. Therefore she did not need further evaluation for blood clot further evaluation. She did have a CT scan of the chest without contrast. I did review it personally with the patient. She did have some areas of airspace disease in the right base suggesting potential bronchopneumonia. Areas also has trace amount of pleural fluid. She did receive ceftriaxone azithromycin as far as treating her for lower respiratory infection and she was discharged off oxygen to home. During the hospitalization she also had an echocardiogram which reviewed which demonstrated a normal EF although she did have diastolic dysfunction 2+ and she also had borderline pulmonary hypertension. She does have significant daytime drowsiness and the patient does have evidence of sleep apnea. She does have cardiovascular risk factors in his sleep study is warranted at this time. During the office visit we also did go for brief walking oximetry and she did desaturate down to about 92% with activity. The patient does not qualify for oxygen which is reassuring this suggests the possibility of pulmonary vascular disease. On a side note she also was noted to have nasal polyps and she was referred to ENT and currently being evaluated for that. 05/27/2024 the patient is here for a pulmonary follow-up visit. Overall the patient has been doing fairly well. She does have daytime drowsiness. Her Greenwood score is elevated /24. The patient also has evidence of pulmonary hypertension. She did have a sleep study. We did review it. She has severe sleep apnea based on the study. She has significant hypoxia during the study as well. Likely contributing to her pulmonary hypertension. Therefore, we talked about the gravity of the situation and for her to treat this condition as soon as possible. I am going to order a APAP from a [employer] locally. The patient will be set up as soon as possible. She has not had her pulmonary function studies as of yet. Overall she is doing okay. She still having dyspnea on exertion mild in severity. Will have her come back in 3 months so we can address how she is responding to the CPAP and also review her PFTs at that time. 09/29/2024 the patient is here for pulmonary follow-up visit. Overall she is about the same. Still complaining of coughing bouts. Last night she had a bad 1. She also had significant chest congestion. She has been on the Breo with partial response. She did have PFTs which she did review demonstrating no evidence of obstructive nor restrictive ventilatory defects. Although on exam she does have significant wheezing and prolonged expiratory phase. In addition to that she did not tolerate the CPAP even though she has severe sleep apnea. She has already dentist and she did get a mandibular advancement device. She has been use it every night feel like she is getting good rest. Based on the fact that she has severe sleep apnea and significant hypoxia will repeat a home sleep study while wearing the oral mandibular device to make sure that is adequate to treat her underlying severe sleep apnea. The patient also had a CT scan to the lung cancer screening program and that was reassuring without any significant findings. She will continue participate in the program at this time. Based on her significant wheezing will go ahead and increase her Breo to Trelegy and will start her on azithromycin 3 times a week to treat her for chronic bronchitis. We can also consider Daliresp as a good option for her for chronic bronchitis. PENDING SALE TO [facility] Medical History (Updated 05/27/24 @ 14:53 by Jorge L Mcmanus MD) SVT (supraventricular tachycardia) Nasal polyps Diastolic dysfunction Pulmonary hypertension Hypoxia Appendix abscess Abdominal hernia with obstruction Postoperative intestinal obstruction Diverticulitis Bowel obstruction Surgical History (Updated 01/07/24 @ 15:44 by Naga Morel MD) History of cardiac radiofrequency ablation Social History Alcohol intake: never Patient Tobacco Use Status: Former Tobacco user Years Smoked: 55 Substance Use Type: Marijuana Review of Systems Const Reports daytime sleepiness, Denies fever(s), Reports headache(s), Reports snoring and Reports stops breathing during sleep Eyes Reports no additional complaints ENT Reports headache(s), Reports nasal congestion, Reports nasal discharge and Reports nasal obstruction Card Denies chest pain and Reports dyspnea on exertion Resp Reports cough, Reports dyspnea on exertion, Reports snoring and Denies wheezing GI Reports no additional complaints Musc Reports no additional complaints Skin/Breast Denies rash Neuro Reports headache(s) Micky/Lymph Denies easy bleeding Aller/Immun Denies wheezing Physical Exam Vital Signs: Last Vital Signs Pulse 48 L 09/29/24 14:07 BP 118/74 09/29/24 14:07 Pulse Ox 95 09/29/24 14:07 Oxygen Delivery Method Room Air 09/29/24 14:07 BMI result Body Mass Index 29.9 Const General: comfortable HEENT Head: Yes normocephalic Neck Neck: Yes supple Chest Chest palpation & inspection: normal inspection of the chest Resp Effort & Inspection: normal respiratory effort and prolonged expiratory phase Auscultation: wheezes and diminished lung sounds Cardio Rate: regular rate Rhythm: regular rhythm Heart sounds: S1 normal heart sound present and S2 normal heart sound present GI Palpation (GI): Soft to palpation Skin General skin exam: no rashes or lesions noted Extrem General: No clubbing and No cyanosis Assessment & Plan Assessment & Plan (1) ALDAIR (obstructive sleep apnea): Comment: severe Code(s): G47.33 - Obstructive sleep apnea (adult) (pediatric) Category: Medical (2) Pulmonary hypertension: Comment: fabinene Code(s): I27.20 - Pulmonary hypertension, unspecified Category: Medical (3) Diastolic dysfunction: Code(s): I51.89 - Other ill-defined heart diseases Category: Medical (4) Reactive airway disease: Code(s): J45.909 - Unspecified asthma, uncomplicated Category: Medical Qualifiers: Asthma complication type: uncomplicated Asthma persistence: persistent Asthma severity: moderate Qualified Code(s): J45.40 - Moderate persistent asthma, uncomplicated (5) Nasal polyps: Code(s): J33.9 - Nasal polyp, unspecified Category: Medical Plan continue Breo start Incruse PFTs are normal stopped APAP continue OMD Home PSG with OMD continue fluticasone nasal spray sputum cx azithromycin MWF EKG F/U 2-3 months Orders: Orders AMB EKG-In Office Today J33.9 - Nasal polyp, unspecified Sputum Cult + Gram stain Today R91.1 - Solitary pulmonary nodule Medications: New azithromycin Take 1 tablet on Friday/Friday/Friday 250 mg PO 3XW 12 tabs 1RF 28 days K21.9 - Gastro-esophageal reflux disease without esophagitis umeclidinium 62.5 mcg/actuation (Incruse Ellipta) 1 inh inhalation DAILY 30 ea 11RF 30 days J44.9 - Chronic obstructive pulmonary disease, unspecified, J45.909 - Unspecified asthma, uncomplicated Coding Level of Care Code Est Pt Level 4 (68410) Complex EM visit Add On G2211 Diagnoses ALDAIR (obstructive sleep apnea) G47.33 Pulmonary hypertension I27.20 Diastolic dysfunction I51.89 Moderate persistent reactive airway disease without complication J45.40 Asthma complication type: uncomplicated Asthma persistence: persistent Asthma severity: moderate Nasal polyps J33.9 Time Spent (min) 17
[2024-09-29 14:07] VITALS: BP 118/74; PULSE 48; O2SAT 95; BMI 29.9
--- OUTSIDE RECORDS SUMMARY | 2024-09-29 16:21 | XMS_ITS | Clinical Summary ---
Author Organization [facility] Address [address] [place] [address] Care Team Providers Care Cup Setter Lockstitch Name Role Phone Unavailable Primary Care Provider Unavailabl e Social History Tobacco Use Types Packs/Day Years Used Date Smoking Tobacco: Never Assessed Sex and Gender Information Value Date Recorded Sex Assigned at Not on file Gender Identity Not on file Sexual Orientation Not on file Plan of Treatment Health Maintenance Due Date Last Done Comments Hepatitis C Virus Screening 1950 DTaP/Tdap/Td Vaccines (1 - Tdap) 1971 Pneumococcal Vaccines 50+ (1 of 1 - PCV) 2002 Zoster (Shingles) Vaccine (1 of 2) 2002 COVID-19 Vaccine ( - 2023-2 5 season) 2024 RSV Vaccine 60 years and old er and Patients (1 - 1-dose 75+ series) 2027 Hepatitis B Vaccines Aged Out No long er eligible based on patient's age to complete this topic
== END 2024-09-29 14:47 | disposition home or self-care (01) ==
PROVIDERS: PCP Nurse Practitioner Family; Visit Provider Hospitalist
DX: G47.33 Obstructive sleep apnea (adult) (pediatric) (principal); I27.20 Pulmonary hypertension, unspecified; I51.89 Other ill-defined heart diseases; J45.40 Moderate persistent asthma, uncomplicated; J33.9 Nasal polyp, unspecified
CPT/HCPCS: 99214; G2211

== ENCOUNTER 2025-01-13 12:17 | Emergency (ER) | payer MEDICARE, SELFPAY ==
[2025-01-13 12:23] VITALS: BP 184/87; PULSE 65; RESP 18; TEMP 36.8; O2SAT 97; BMI 29.8
--- NOTE | 2025-01-13 13:11 | ED.GENADULT ---
HPI - General Adult General Chief complaint: Animal Bite Stated complaint: dog bite r hand Time Seen by Provider: 01/13/25 13:06 Source: patient, RN notes reviewed and old records reviewed Mode of arrival: ambulatory Limitations: no limitations History of Present Illness ED Provider: Yazmin HPI narrative: 74-year-old female presents for evaluation of a dog bite to her right index finger. Patient reports that she was checking her dog for ticks when he bit her on the right index finger. This happened 2 days ago. She has a small amount of redness developing around the bite with some swelling. There was no drainage from the area. She is able to flex and extend the right index finger. The dog is up-to-date on his vaccines. The patient reports she is up-to-date on her tetanus Related Data Home Medications ?Medication ?Instructions ?Recorded ?Confirmed citalopram 20 mg tablet 20 mg PO DAILY 01/07/24 fluticasone furoate 100 1 ea inhalation DAILY 01/07/24 mcg-vilanterol 25 mcg/dose inhalation powder (Breo Ellipta) metoprolol tartrate 25 mg tablet 25 mg PO BID 01/07/24 omeprazole 40 mg capsule,delayed 40 mg PO DAILY 01/07/24 release pravastatin 20 mg tablet 20 mg PO DAILY 01/07/24 solifenacin 5 mg tablet 5 mg PO DAILY 01/07/24 trazodone 150 mg tablet 150 mg PO BEDTIME 01/07/24 Previous Rx's ?Medication ?Instructions ?Recorded dicyclomine 20 mg tablet 20 mg PO BID PRN abdominal pain 06/07/20 #14 tabs loperamide 2 mg capsule (Imodium 2 mg PO Q6H PRN loose stool #7 caps 06/07/20 A-D) azithromycin 250 mg tablet 250 mg PO 3XW 28 days #12 tabs 11/23/24 fluticasone propionate 50 2 spray intranasal DAILY 30 days 11/23/24 mcg/actuation nasal #15.8 mL spray,suspension (Flonase Allergy Relief) umeclidinium 62.5 mcg/actuation 1 inh inhalation DAILY 30 days #30 12/06/24 blister powder for inhalation ea (Incruse Ellipta) cefuroxime axetil 500 mg tablet 500 mg PO Q12H #10 tabs 01/13/25 clindamycin HCl 300 mg capsule 300 mg PO TID #15 caps 01/13/25 Allergies Allergy/AdvReac Type Severity Reaction Status Date / Time erythromycin base Allergy Mild HIVES Verified 01/13/25 12:26 [Erythromycin Base] Penicillins Allergy Mild HIVES Verified 01/13/25 12:26 metronidazole [Flagyl] Allergy Unknown nausea and Verified 01/13/25 12:26 vomiting penicillin V Allergy Unknown Hives Verified 01/13/25 12:26 Review of Systems Integumentary/Breasts: Skin/Breast: Reports erythema, Denies rash and Reports wounds PMFSH Past Medical History Medical History (Updated 01/13/25 @ 13:13 by Ariel Arce) SVT (supraventricular tachycardia) Nasal polyps Diastolic dysfunction Pulmonary hypertension Hypoxia Appendix abscess Abdominal hernia with obstruction Postoperative intestinal obstruction Diverticulitis Bowel obstruction Surgical History (Updated 01/07/24 @ 15:44 by Naga Morel MD) History of cardiac radiofrequency ablation Social History Social History Alcohol intake: never Patient Tobacco Use Status: Former Tobacco user Years Smoked: 55 Substance Use Type: Marijuana Advance Directives: No Advance Directives Information Provided: Yes Physical Exam ED Vital Signs: Vital Signs - 24 hr 01/13/25 12:23 01/13/25 13:15 Temperature 98.3 F 98.3 F Pulse Rate 65 65 Respiratory Rate 18 18 Blood Pressure 184/87 H 184/87 H Pulse Oximetry 97 97 Oxygen Delivery Method Room Air Room Air BMI result Body Mass Index 29.8 Const General: healthy appearing, comfortable, no acute distress, alert and awake Nutritional Appearance: well nourished Orientation/consciousness: patient oriented x3 HENMT Head: Yes normocephalic and Yes atraumatic Throat: Yes posterior oropharynx normal Eyes Eyelids: Yes eyelids normal Conjunctivae: conjunctivae normal Sclerae: sclerae normal Corneas: corneas normal Pupils: Equal, round and reactive pupils present EOM: EOMs intact bilaterally Neck Neck: Yes full ROM Cardio Rate: regular rate Rhythm: regular rhythm Skin Other: There is a small amount of erythema a healing puncture wound to the right index finger in between the MCP and D IP joint of the dorsal surface. Patient has full range of motion with flexion and extension General skin exam: elasticity normal Neuro General: patient oriented x3 Cranial nerves: Yes Equal, round and reactive pupils present and Yes Bilaterally intact EOM present Cognition (Neuro): normal cognition Medical Decision Making Medical Decision Making MDM Narrative: 74-year-old female presents for evaluation of a dog bite to her right index finger. She appears to have a mild developing cellulitis, no evidence of deeper infection, abscess or tenosynovitis. We will treat with clindamycin and cefuroxime due to penicillin and metronidazole allergies. Differential Diagnosis Differential Diagnoses: The differential diagnosis associated with the presentation includes Dog bite Cellulitis Abscess Tenosynovitis Discharge Plan Discharge Clinical Impression: Dog bite of finger Patient Disposition: Home, Self-Care Instructions: Animal Bite (ED) Additional Instructions: Take both antibiotics as prescribed. You should also apply warm compresses to the swollen area. You can apply topical bacitracin twice daily Take the antibiotics with food to prevent upset stomach Follow-up with your primary doctor, return for new or worsening symptoms Prescriptions: New clindamycin HCl 300 mg capsule 300 mg PO TID Qty: 15 0RF cefuroxime axetil 500 mg tablet 500 mg PO Q12H Qty: 10 0RF No Action fluticasone propionate [Flonase Allergy Relief] 50 mcg/actuation spray,suspension 2 spray intranasal DAILY 30 Days Qty: 15.8 12RF Rx Instructions: administer into each nostril azithromycin 250 mg tablet 250 mg PO 3XW 28 Days Qty: 12 1RF Rx Instructions: Take 1 tablet on Friday/Friday/Friday Incruse Ellipta 62.5 mcg/actuation blister with device 1 inh inhalation DAILY 30 Days Qty: 30 11RF dicyclomine 20 mg tablet 20 mg PO BID PRN (Reason: abdominal pain) Qty: 14 0RF loperamide [Imodium A-D] 2 mg capsule 2 mg PO Q6H PRN (Reason: loose stool) Qty: 7 0RF fluticasone furoate-vilanterol [Breo Ellipta] 100-25 mcg/dose blister with device 1 ea inhalation DAILY pravastatin 20 mg tablet 20 mg PO DAILY metoprolol tartrate 25 mg tablet 25 mg PO BID trazodone 150 mg tablet 150 mg PO BEDTIME citalopram 20 mg tablet 20 mg PO DAILY solifenacin 5 mg tablet 5 mg PO DAILY omeprazole 40 mg capsule,delayed release(DR/EC) 40 mg PO DAILY Interventions: ED Discharge Assessment Last Done: 01/13/25 13:15 Discharge Date/Time: 01/13/25 13:35 Print Language: Danish
[2025-01-13 13:15] VITALS: BP 184/87; PULSE 65; RESP 18; TEMP 36.8; O2SAT 97
--- OUTSIDE RECORDS SUMMARY | 2025-01-13 13:48 | XMS_ITS | Clinical Summary ---
Author Organization [facility] Address [address] [place] [address] Care Team Providers Care Fitness Teacher Name Role Phone Unavailable Primary Care Provider Unavailabl e Social History Tobacco Use Types Packs/Day Years Used Date Smoking Tobacco: Never Assessed Comments Unknown Sex and Gender Information Value Date Recorded Sex Assigned at Not on file Legal Sex Female 7:03 PM EST Gender Identity Not on file Sexual Orientation [...]
== END 2025-01-13 13:35 | disposition home or self-care (01) ==
PROVIDERS: Emergency Provider Emergency Medicine Emergency Medical Services; PCP Family Medicine
DX: S61.250A Open bite of right index finger without damage to nail, initial encounter (principal); W54.0XXA Bitten by dog, initial encounter; Y93.K3 Activity, grooming and shearing an animal; Y92.9 Unspecified place or not applicable; Y99.9 Unspecified external cause status
CPT/HCPCS: 99282; 99283

== ENCOUNTER 2025-02-11 08:54 | Day surgery (SDC) | payer MEDICARE, SELFPAY ==
--- OUTSIDE RECORDS SUMMARY | 2025-01-31 08:29 | XMS_ITS | Clinical Summary ---
Author Organization [facility] Address [address] [place] [address] Care Team Providers Care Contract Forester Name Role Phone Unavailable Primary Care Provider [...]
[2025-02-10 07:14] VITALS: BMI 28.0
--- NOTE | 2025-02-10 09:47 | HO.ANESPROP2 ---
HPI - Anesthesia Eval Consult details Narrative: 74yo F for Colonoscopy Follows [facility] [place] [place] for severe ALDAIR with mandibular oral device, asthma, borderline pulmo htn Follows [facility]. Hx SVT s/p ablation. Stable at 10/2024 office visit [facility] Active Problems Active Problems: All Active Problems Reactive airway disease (Acute) ALDAIR (obstructive sleep apnea) (Acute) Reducible umbilical hernia (Acute) Asymptomatic gallstones (Acute) Nasal polyps (Acute) Diastolic dysfunction (Acute) Pulmonary hypertension (Acute) Hypoxia (Acute) Past Medical History Medical History HTN (hypertension) Hypertriglyceridemia GERD (gastroesophageal reflux disease) SVT (supraventricular tachycardia) Nasal polyps Diastolic dysfunction Pulmonary hypertension Hypoxia Appendix abscess Abdominal hernia with obstruction Postoperative intestinal obstruction Diverticulitis Bowel obstruction Surgical History Surgical History Hx of bilateral cataract extraction History of bladder suspension procedure History of bunionectomy History of bowel resection History of esophagogastroduodenoscopy (EGD) H/O colonoscopy History of cardiac radiofrequency ablation Social History Social History Alcohol intake: never Patient Tobacco Use Status: Former Tobacco user Years Smoked: 55 Substance Use Type: Marijuana Have you been hit, kicked, punched, or otherwise hurt by someone within the past year? If so, by whom?: No Are you DNR?: No Advance Directives: No Advance Directives Information Provided: Yes Patient : No Meds Allergies Allergy/AdvReac Type Severity Reaction Status Date / Time erythromycin base Allergy Mild HIVES Verified 01/13/25 12:26 (Erythromycin Base) Penicillins Allergy Mild HIVES Verified 01/13/25 12:26 metronidazole (Flagyl) Allergy Unknown nausea and Verified 01/13/25 12:26 vomiting penicillin V Allergy Unknown Hives Verified 01/13/25 12:26 Home Medications ?Medication ?Instructions ?Recorded ?Confirmed ?Last Taken ?Type citalopram 20 mg tablet 20 mg PO DAILY 01/07/24 02/10/25 02/11/25 History fluticasone furoate 100 1 ea inhalation DAILY 01/07/24 02/11/25 History mcg-vilanterol 25 mcg/dose inhalation powder (Breo Ellipta) omeprazole 40 mg capsule,delayed 20 mg PO DAILY 01/07/24 02/10/25 02/11/25 History release solifenacin 5 mg tablet 5 mg PO DAILY 01/07/24 02/10/25 02/11/25 History trazodone 150 mg tablet 50 mg PO BEDTIME 01/07/24 02/10/25 Unknown History cholestyramine (with sugar) 4 gram 4 g PO DAILY 02/10/25 02/10/25 Unknown History powder for susp in a packet (Questran) nifedipine 30 mg tablet,extended 30 mg PO DAILY 02/10/25 02/10/25 02/11/25 History release Exam Height,Weight and Vital Signs: Height 5 ft 4 in Weight 73.936 kg Narrative Narrative: EKG 10/2024 [id number] Ventricular Rate: 44 BPM Atrial Rate: 44 BPM P-R Interval: 170 ms QRS Duration: 92 ms Q-T Interval: 476 ms QTC Calculation(Bazett): 406 ms P Gary: 38 degrees R Gary: 1 degrees T Gary: 53 degrees Marked sinus bradycardia Possible Anterior infarct , age undetermined Nonspecific T wave abnormality Abnormal ECG When compared with ECG of 09-Dec-2023 17:27, Nonspecific T wave abnormality no longer evident in Anterior leads Confirmed by NIKA RODRIGUEZ MD ([id number]) on 11/26/2024 7:14:51 AM EchoEchocardiogram - Complete ? 10:58:31 Summary The left ventricular size is normal. Left ventricular wall thickness is normal. The LV systolic function is normal . The left ventricular ejection fraction is 65-70 %. There are no regional wall motion abnormalities. Grade II, moderate diastolic dysfunction with pseudonormal LV filling pattern and increased LA pressure. The left atrium is mildly dilated. The aortic valve is trileaflet . The aortic valve appears mildly calcified. There is no aortic stenosis. There is trace aortic regurgitation. The right ventricle is normal in size and function. There is borderline pulmonary hypertension. The pulmonary artery systolic pressure estimation is 36 mmHg plus right atrial pressure. Impressions Follow-up imaging obtained to complete study. Follow up imaging consistent with moderate diastolic dysfunction suggesting increased left ventricular filling pressure. Comparison Comparison is made to the study of March 01, 2022. The left atrium is mildly dilated. There is borderline pulmonary hypertension. Grade II, moderate diastolic dysfunction with pseudonormal LV filling pattern and increased LA pressure. Assessment and Plan Assessment Anesthesia Assessment: Chart Reviewed
[2025-02-11 09:19] VITALS: BP 132/77; PULSE 88; RESP 19; TEMP 36.1; O2SAT 94; BMI 27.3
[2025-02-11] MEDS: Lactated Ringers 1,000 ML 100 ML IVCONT (09:40)
--- NOTE | 2025-02-11 10:54 | P.CONAN_ITS ---
[facility] Active Problems Active Problems: All Active Problems Reactive airway disease (Acute) ALDAIR (obstructive sleep apnea) (Acute) Reducible umbilical hernia (Acute) Asymptomatic gallstones (Acute) Nasal polyps (Acute) Diastolic dysfunction (Acute) Pulmonary hypertension (Acute) Hypoxia (Acute) Past Medical History Medical History HTN (hypertension) Hypertriglyceridemia GERD (gastroesophageal reflux disease) SVT (supraventricular tachycardia) Nasal polyps Diastolic dysfunction Pulmonary hypertension Hypoxia Appendix abscess Abdominal hernia with obstruction Postoperative intestinal obstruction Diverticulitis Bowel obstruction Functional capacity: independent ambulation Patient : No Family History Family history of problems with anesthesia: No Surgical History Surgical History Hx of bilateral cataract extraction History of bladder suspension procedure History of bunionectomy History of bowel resection History of esophagogastroduodenoscopy (EGD) H/O colonoscopy History of cardiac radiofrequency ablation History of Problems with Anesthesia: No Social History Social History Alcohol intake: never Patient Tobacco Use Status: Former Tobacco user Years Smoked: 55 Substance Use Type: Marijuana Have you been hit, kicked, punched, or otherwise hurt by someone within the past year? If so, by whom?: No Are you DNR?: No Advance Directives: No Advance Directives Information Provided: Yes Meds Allergies Allergy/AdvReac Type Severity Reaction Status Date / Time erythromycin base Allergy Mild HIVES Verified 01/13/25 12:26 [Erythromycin Base] Penicillins Allergy Mild HIVES Verified 01/13/25 12:26 metronidazole [Flagyl] Allergy Unknown nausea and Verified 01/13/25 12:26 vomiting penicillin V Allergy Unknown Hives Verified 01/13/25 12:26 Active Medications: Current Medications Albuterol Sulfate (Albuterol Sulfate (0.083%) 2.5 Mg/3 Ml Vial.Neb) 2.5 mg INHALE ONCE PRN PRN Reason: Shortness of Breath/Wheezing Lactated Ringer's (Lr) 1,000 mls @ 100 mls/hr IVCONT .Q10H MADELAINE Last Admin: 02/11/25 09:40 Dose: 100 mls/hr Home Medications ?Medication ?Instructions ?Recorded ?Confirmed ?Last Taken ?Type citalopram 20 mg tablet 20 mg PO DAILY 01/07/24 02/10/25 02/11/25 History fluticasone furoate 100 1 ea inhalation DAILY 01/07/24 02/11/25 History mcg-vilanterol 25 mcg/dose inhalation powder (Breo Ellipta) omeprazole 40 mg capsule,delayed 20 mg PO DAILY 01/07/24 02/10/25 02/11/25 History release solifenacin 5 mg tablet 5 mg PO DAILY 01/07/24 02/10/25 02/11/25 History trazodone 150 mg tablet 50 mg PO BEDTIME 01/07/24 02/10/25 Unknown History cholestyramine (with sugar) 4 gram 4 g PO DAILY 02/10/25 02/10/25 Unknown History powder for susp in a packet (Questran) nifedipine 30 mg tablet,extended 30 mg PO DAILY 02/10/25 02/10/25 02/11/25 History release Exam Height,Weight and Vital Signs: Height 5 ft 4 in Weight 72.1 kg Last Vital Signs Temp 96.9 F 02/11/25 09:19 Pulse 88 02/11/25 09:19 Resp 19 02/11/25 09:19 BP 132/77 02/11/25 09:19 Pulse Ox 94 02/11/25 09:19 O2 Del Method Room Air 02/11/25 09:19 Airway Mallampati Class: III TM Dist: >3cm Neck ROM: Full Heart: RRR Lungs: CTA Assessment and Plan Assessment Anesthesia Assessment: Anesthesia Plan Discussed and Chart Reviewed Final Anesthetic Review Family History of Problems with Anesthesia: No History of Problems with Anesthesia: No NPO: Yes ASA Class: III Final Preanesthetic Review: Meds/Allgs Chart Reviewed, Consent Obtained/Reviewed and Anes Risks/Benef Reviewed Patient Risk: Low Procedure Risk: Low Anesthetic Plan Anesthetic Plan: MAC: Disposition: Standard PACU
--- NOTE | 2025-02-11 10:57 | P.CONAN_ITS ---
[facility] Active Problems Active Problems: All Active Problems Reactive airway disease (Acute) ALDAIR (obstructive sleep apnea) (Acute) Reducible umbilical hernia (Acute) Asymptomatic gallstones (Acute) Nasal polyps (Acute) Diastolic dysfunction (Acute) Pulmonary hypertension (Acute) Hypoxia (Acute) Past Medical History Medical History HTN (hypertension) Hypertriglyceridemia GERD (gastroesophageal reflux disease) SVT (supraventricular tachycardia) Nasal polyps Diastolic dysfunction Pulmonary hypertension Hypoxia Appendix abscess Abdominal hernia with obstruction Postoperative intestinal obstruction Diverticulitis Bowel obstruction Functional capacity: independent ambulation Family History Family history of problems with anesthesia: No Surgical History Surgical History Hx of bilateral cataract extraction History of bladder suspension procedure History of bunionectomy History of bowel resection History of esophagogastroduodenoscopy (EGD) H/O colonoscopy History of cardiac radiofrequency ablation History of Problems with Anesthesia: No Social History Social History Alcohol intake: never Patient Tobacco Use Status: Former Tobacco user Years Smoked: 55 Substance Use Type: Marijuana Have you been hit, kicked, punched, or otherwise hurt by someone within the past year? If so, by whom?: No Are you DNR?: No Advance Directives: No Advance Directives Information Provided: Yes Patient : No Meds Allergies Allergy/AdvReac Type Severity Reaction Status Date / Time erythromycin base Allergy Mild HIVES Verified 01/13/25 12:26 [Erythromycin Base] Penicillins Allergy Mild HIVES Verified 01/13/25 12:26 metronidazole [Flagyl] Allergy Unknown nausea and Verified 01/13/25 12:26 vomiting penicillin V Allergy Unknown Hives Verified 01/13/25 12:26 Active Medications: Current Medications Albuterol Sulfate (Albuterol Sulfate (0.083%) 2.5 Mg/3 Ml Vial.Neb) 2.5 mg INHALE ONCE PRN PRN Reason: Shortness of Breath/Wheezing Lactated Ringer's (Lr) 1,000 mls @ 100 mls/hr IVCONT .Q10H MADELAIEN Last Admin: 02/11/25 09:40 Dose: 100 mls/hr Home Medications ?Medication ?Instructions ?Recorded ?Confirmed ?Last Taken ?Type citalopram 20 mg tablet 20 mg PO DAILY 01/07/24 02/10/25 02/11/25 History fluticasone furoate 100 1 ea inhalation DAILY 01/07/24 02/11/25 History mcg-vilanterol 25 mcg/dose inhalation powder (Breo Ellipta) omeprazole 40 mg capsule,delayed 20 mg PO DAILY 01/07/24 02/10/25 02/11/25 History release solifenacin 5 mg tablet 5 mg PO DAILY 01/07/24 02/10/25 02/11/25 History trazodone 150 mg tablet 50 mg PO BEDTIME 01/07/24 02/10/25 Unknown History cholestyramine (with sugar) 4 gram 4 g PO DAILY 02/10/25 02/10/25 Unknown History powder for susp in a packet (Questran) nifedipine 30 mg tablet,extended 30 mg PO DAILY 02/10/25 02/10/25 02/11/25 History release Exam Height,Weight and Vital Signs: Height 5 ft 4 in Weight 72.1 kg Last Vital Signs Temp 96.9 F 02/11/25 09:19 Pulse 88 02/11/25 09:19 Resp 19 02/11/25 09:19 BP 132/77 02/11/25 09:19 Pulse Ox 94 02/11/25 09:19 O2 Del Method Room Air 02/11/25 09:19 Assessment and Plan Assessment Anesthesia Assessment: Anesthesia Plan Discussed and Chart Reviewed Final Anesthetic Review Family History of Problems with Anesthesia: No History of Problems with Anesthesia: No NPO: Yes ASA Class: III Final Preanesthetic Review: Meds/Allgs Chart Reviewed, Consent Obtained/Reviewed and Anes Risks/Benef Reviewed Patient Risk: Low Procedure Risk: Low Anesthetic Plan Anesthetic Plan: MAC: Disposition: Standard PACU
--- NOTE | 2025-02-11 11:11 | MHC.SHP ---
Pre-Procedural Eval Section A - 24 Hr Update-Section A only Date of Service: 02/11/25 The patient is an INPATIENT: No Changes since office visit: No Cold of Flu in the past 2 weeks, No New Medical Problems, No Changes in Medication and No Patient answered all questions The patient has been examined within 24 hours of the surgical procedure. The History & Physical has been completed within 30 days and I have reviewed it.: Yes Section B - Complete if H&P > 30 days Chief Complaint: screening Allergies: Allergies Allergy/AdvReac Type Severity Reaction Status Date / Time erythromycin base Allergy Mild HIVES Verified 01/13/25 12:26 [Erythromycin Base] Penicillins Allergy Mild HIVES Verified 01/13/25 12:26 metronidazole [Flagyl] Allergy Unknown nausea and Verified 01/13/25 12:26 vomiting penicillin V Allergy Unknown Hives Verified 01/13/25 12:26 Plan I have reviewed the history and physical and performed a pertinent physical examination on my patient. No changes have occurred unless specified. Time Spent With Patient Time: Total time managing care of this patient today ____ minutes.
[2025-02-11 12:02] VITALS: BP 111/56; PULSE 62; RESP 16; TEMP 36.2; O2SAT 95
--- NOTE | 2025-02-11 12:02 | P.BOP_ITS ---
Brief Operative Note Date of Service: 02/11/25 Pre-op diagnosis: screening Post-op diagnosis: same Procedure: colonoscopy Surgeon: Edin Ureña MD Was an Assistant Professor Sculpture used for this Procedure?: No Estimated blood loss (mL): 5 Pathology: other Condition: stable Disposition: PACU
[2025-02-11 12:17] VITALS: BP 128/60; PULSE 63; RESP 16; TEMP 36.2; O2SAT 94
--- NOTE | 2025-02-11 22:15 | OP_ITS ---
DATE OF SERVICE: 02/11/2025 SURGEON: Edin Ureña MD INDICATIONS: Colon cancer screening. PREOPERATIVE DIAGNOSIS: POSTOPERATIVE DIAGNOSIS: PROCEDURE PERFORMED: Colonoscopy to the terminal ileum with biopsy and snare polypectomy. ESTIMATED BLOOD LOSS: COMPLICATIONS: ANESTHESIA: Monitored anesthesia care. ASSISTANTS: SPECIMENS: DESCRIPTION OF PROCEDURE: A history and physical was performed. The risks and benefits of the procedure were explained to the patient, and informed consent was obtained. The patient was placed in the left lateral decubitus position. A digital rectal exam was performed and was found to be normal. The Olympus pediatric video colonoscope was introduced into the rectum and advanced to the cecum. The cecum was identified by transillumination, palpation, and identification of ileocecal valve. Examination was performed. The scope was removed. She tolerated the procedure well and was returned to the recovery area in stable condition. FINDINGS: The terminal ileum was examined and appeared normal. The visualized colonic mucosa was normal. The quality of the prep was good. In the right colon were 2 less than 10 mm polyps, which were removed with a biopsy forceps. At 40 cm was a 10 mm polyp, which was removed with a hot snare and recovered through the scope. There was moderate sigmoid diverticulosis. Retroflexed examination showed moderate-sized internal hemorrhoids. IMPRESSION: Colon polyps. RECOMMENDATION: Follow up the biopsy results. MD SAVANAH Rizvi/MODL / [id number]
== END 2025-02-11 12:45 | disposition home or self-care (01) ==
PROVIDERS: PCP Family Medicine; Visit Provider Internal Medicine Gastroenterology
PROC: 0DJD8ZZ Inspection of Lower Intestinal Tract, Via Natural or Artificial Opening Endoscopic (ICD-10-PCS; CPT 45378; principal; 2025-02-11 11:10)
DX: Z12.11 Encounter for screening for malignant neoplasm of colon (principal); Z86.0101 Personal history of adenomatous and serrated colon polyps; D12.2 Benign neoplasm of ascending colon; D12.5 Benign neoplasm of sigmoid colon; K57.30 Diverticulosis of large intestine without perforation or abscess without bleeding; K64.8 Other hemorrhoids; K21.9 Gastro-esophageal reflux disease without esophagitis; Z87.19 Personal history of other diseases of the digestive system; I10 Essential (primary) hypertension; E78.1 Pure hyperglyceridemia; R00.0 Tachycardia, unspecified; G47.00 Insomnia, unspecified; Z79.899 Other long term (current) drug therapy; Z90.49 Acquired absence of other specified parts of digestive tract; Z98.890 Other specified postprocedural states; Z87.891 Personal history of nicotine dependence
CPT/HCPCS: 45385; 45380; 88305; J2003; J2704

== ENCOUNTER 2025-03-11 15:35 | Outpatient (AMB) | payer MEDICARE, SELFPAY ==
[2025-03-11 15:36] VITALS: BP 124/64; PULSE 51; O2SAT 92; BMI 28.3
--- NOTE | 2025-03-11 15:36 | MHC.OFFVIS ---
Vital Signs 03/11/25 15:36 Height 5 ft 4 in Weight 165 lb BMI 28.3 BP 124/64 Blood Pressure Location Rt brachial Position Sitting Pulse 51 Pulse Source Pulse Oximeter Pulse Oximetry (%) 92 Oxygen Delivery Method Room Air Intake Visit Reasons: Hypoxia Allergies erythromycin base (Erythromycin Base) Allergy (Mild, Verified 03/11/25 15:41) HIVES Penicillins Allergy (Mild, Verified 03/11/25 15:41) HIVES metronidazole (Flagyl) Allergy (Unknown, Verified 03/11/25 15:41) nausea and vomiting penicillin V Allergy (Unknown, Verified 03/11/25 15:41) Hives HPI Comments Details: The patient is a 74 year woman who is a former smoker presenting with worsening shortness of breath and hypoxia. Apparently back in November she was having a cough for some time. She was having some shortness breath. She went to see her primary care where she was noted to be hypoxic down to 90%. Then they called the ambulance and she was taken to [facility]. There she was actually hypoxic even down to the 80s. She was placed on 5 L of oxygen maintaining a pulse ox 96%. She was admitted to the hospital as part of the workup she did have a D-dimer that was negative. Therefore she did not need further evaluation for blood clot further evaluation. She did have a CT scan of the chest without contrast. I did review it personally with the patient. She did have some areas of airspace disease in the right base suggesting potential bronchopneumonia. Areas also has trace amount of pleural fluid. She did receive ceftriaxone azithromycin as far as treating her for lower respiratory infection and she was discharged off oxygen to home. During the hospitalization she also had an echocardiogram which reviewed which demonstrated a normal EF although she did have diastolic dysfunction 2+ and she also had borderline pulmonary hypertension. She does have significant daytime drowsiness and the patient does have evidence of sleep apnea. She does have cardiovascular risk factors in his sleep study is warranted at this time. During the office visit we also did go for brief walking oximetry and she did desaturate down to about 92% with activity. The patient does not qualify for oxygen which is reassuring this suggests the possibility of pulmonary vascular disease. On a side note she also was noted to have nasal polyps and she was referred to ENT and currently being evaluated for that. 05/27/2024 the patient is here for a pulmonary follow-up visit. Overall the patient has been doing fairly well. She does have daytime drowsiness. Her [place] score is elevated 11/24. The patient also has evidence of pulmonary hypertension. She did have a sleep study. We did review it. She has severe sleep apnea based on the study. She has significant hypoxia during the study as well. Likely contributing to her pulmonary hypertension. Therefore, we talked about the gravity of the situation and for her to treat this condition as soon as possible. I am going to order a APAP from a [facility] locally. The patient will be set up as soon as possible. She has not had her pulmonary function studies as of yet. Overall she is doing okay. She still having dyspnea on exertion mild in severity. Will have her come back in 3 months so we can address how she is responding to the CPAP and also review her PFTs at that time. 09/29/2024 the patient is here for pulmonary follow-up visit. Overall she is about the same. Still complaining of coughing bouts. Last night she had a bad 1. She also had significant chest congestion. She has been on the Breo with partial response. She did have PFTs which she did review demonstrating no evidence of obstructive nor restrictive ventilatory defects. Although on exam she does have significant wheezing and prolonged expiratory phase. In addition to that she did not tolerate the CPAP even though she has severe sleep apnea. She has already dentist and she did get a mandibular advancement device. She has been use it every night feel like she is getting good rest. Based on the fact that she has severe sleep apnea and significant hypoxia will repeat a home sleep study while wearing the oral mandibular device to make sure that is adequate to treat her underlying severe sleep apnea. The patient also had a CT scan to the lung cancer screening program and that was reassuring without any significant findings. She will continue participate in the program at this time. Based on her significant wheezing will go ahead and increase her Breo to Trelegy and will start her on azithromycin 3 times a week to treat her for chronic bronchitis. We can also consider Daliresp as a good option for her for chronic bronchitis. 03/11/2025 the patient is here for pulmonary follow-up visit. The patient overall has been doing okay. She continues to have significant daytime drowsiness with an [place] score of 11/24. Unfortunately she did get the oral mandibular device but has not seen any significant improvement. She was supposed to have a sleep study along with it but she was not aware of the appointment that happened back in November. Therefore we did give her the information for her to call and reschedule her sleep study as soon as possible. Also she needs some help with her sleep aids. The patient has been on trazodone for about 13 years. It does not appear to be effective. She is willing to try Ambien I will send it to the pharmacy. She will start with a half a tablet and did sick way up to 1 tablet and 15 minute for before sleep. Hopefully with a sleep aid she can tolerate the oral mandibular device better and she can have better sleep and feel restful in the morning. She is also concerned about low oxygen. When she came in her saturations were 92%. I did take her for brief walking oximetry and sure enough the patient did start 96% but slowly decreased to 92% and the heart rate was elevated 125 beats per minute. Indeed due to the untreated sleep apnea the concerns is the possibility of pulmonary hypertension as a possibility. I will have her get an echocardiogram and she is also going to get an EKG. And will go ahead and follow-up after the sleep study. She is going to try the sleep aids and will follow-up in 2-3 months. If she has any issues prior to that she will call for an earlier assessment. [facility] Medical History HTN (hypertension) Hypertriglyceridemia GERD (gastroesophageal reflux disease) SVT (supraventricular tachycardia) Nasal polyps Diastolic dysfunction Pulmonary hypertension Hypoxia Appendix abscess Abdominal hernia with obstruction Postoperative intestinal obstruction Diverticulitis Bowel obstruction Surgical History Hx of bilateral cataract extraction History of bladder suspension procedure History of bunionectomy History of bowel resection History of esophagogastroduodenoscopy (EGD) H/O colonoscopy History of cardiac radiofrequency ablation Social History Alcohol intake: never Patient Tobacco Use Status: Former Tobacco user Years Smoked: 55 Substance Use Type: Marijuana Review of Systems Const Reports daytime sleepiness, Denies fever(s), Reports headache(s), Reports snoring and Reports stops breathing during sleep Eyes Reports no additional complaints ENT Reports headache(s), Reports nasal congestion, Reports nasal discharge and Reports nasal obstruction Card Denies chest pain and Reports dyspnea on exertion Resp Reports cough, Reports dyspnea on exertion, Reports snoring and Denies wheezing GI Reports no additional complaints Musc Reports no additional complaints Skin/Breast Denies rash Neuro Reports headache(s) Micky/Lymph Denies easy bleeding Aller/Immun Denies wheezing Physical Exam Vital Signs: Last Vital Signs Pulse 51 03/11/25 15:36 BP 124/64 03/11/25 15:36 Pulse Ox 92 03/11/25 15:36 Oxygen Delivery Method Room Air 03/11/25 15:36 BMI result Body Mass Index 28.3 Const General: comfortable HEENT Head: Yes normocephalic Neck Neck: Yes supple Chest Chest palpation & inspection: normal inspection of the chest Resp Effort & Inspection: normal respiratory effort and prolonged expiratory phase Auscultation: wheezes and diminished lung sounds Cardio Rate: regular rate Rhythm: regular rhythm Heart sounds: S1 normal heart sound present and S2 normal heart sound present GI Palpation (GI): Soft to palpation Skin General skin exam: no rashes or lesions noted Extrem General: No clubbing and No cyanosis Assessment & Plan Assessment & Plan (1) ALDAIR (obstructive sleep apnea): Comment: severe Code(s): G47.33 - Obstructive sleep apnea (adult) (pediatric) Category: Medical (2) Pulmonary hypertension: Comment: fabienne Code(s): I27.20 - Pulmonary hypertension, unspecified Category: Medical (3) Diastolic dysfunction: Code(s): I51.89 - Other ill-defined heart diseases Category: Medical (4) Reactive airway disease: Code(s): J45.909 - Unspecified asthma, uncomplicated Category: Medical Qualifiers: Asthma complication type: uncomplicated Asthma persistence: persistent Asthma severity: moderate Qualified Code(s): J45.40 - Moderate persistent asthma, uncomplicated (5) Nasal polyps: Code(s): J33.9 - Nasal polyp, unspecified Category: Medical Plan stop Breo stop Incruse strat Breztri with spacer continue OMD Home PSG with OMD continue fluticasone nasal spray zolpidem as needed for sleep F/U 2-3 months Medications: New [id number] 160-9-4.8 mcg/actuation (Breztri Aerosphere) 2 inhalations inhalation BID 90 days 3 ea 3RF zolpidem (Ambien) 10 mg PO BEDTIME 90 tabs 0RF 90 days [id number]-ciqjfsxz-radkrrfyss 160-9-4.8 mcg/actuation (Breztri Aerosphere) 2 inhalations inhalation BID 3 ea 3RF 90 days Coding Level of Care Code Est Pt Level 4 (03574) Diagnoses ALDAIR (obstructive sleep apnea) G47.33 Pulmonary hypertension I27.20 Diastolic dysfunction I51.89 Moderate persistent reactive airway disease without complication J45.40 Asthma complication type: uncomplicated Asthma persistence: persistent Asthma severity: moderate Nasal polyps J33.9 Time Spent (min) 16
--- OUTSIDE RECORDS SUMMARY | 2025-03-11 15:37 | XMS_ITS | Clinical Summary ---
Author Organization [facility] Address [address] [place] [address] Care Team Providers Care [employer] Name Role Phone Unavailable Primary Care Provider [...]
--- OUTSIDE RECORDS SUMMARY | 2025-03-11 15:37 | XMS_ITS | Patient Health Record ---
Author Organization [facility] Address [address] [place] [address] Care Team Providers Care Hog Man Name Role Phone Phillip Frazier Primary Care Provider Edin Giraldo Jr Unavailable Allergies Allergen (clinical drug ingredient) Drug/Non Drug Allergy documented on EMR Reaction Allergy Type Onset Date Status Penicillin Unknown Drug Allergy Active Results Component Value Reference Range Notes Pathology Reviewed date:02/18/2025 03:48:09 PM Interpretation: Performing Lab:[facility], [address] [place] [phone] Notes/Report: Reason For Referral No Information Medications Medication SIG (Take, Route, Frequency, Duration) Notes Start Date End Date Status Solifenacin Succinate 5 MG Oral for 90 Days Active Questran 4 GM 1 packet mixed with water or non-carbonated drink Orally once a day Active Citalopram & Diet Manage Prod 10 MG as directed Orally once a day 03/09/2014 Active Omeprazole 20 MG 1 capsule Orally Onc e a day 03/09/2014 Active Probiotic + Maxwell-3 Active traZODone HCl 50 MG 1 tablet at bedtime Orally Once a day Active NIFEdipine ER 30 MG TAKE 1 TABLET BY SANTOSH TH EVERY DAY Oral for 90 Days Active Immunizations Vaccine Route Administration Date Status Comme nts Influenza Unknown 06/02/2019 Administered Social History Tobacco Use: Social History Observation Description Date Details (start date - stop date) Former Smoker NA - NA Tobacco Control (Standard) Question Answer Notes Tobacco use: Former smoker How long has it been since you last smoked? 1-5 years AUDIT-C (Standard) Question Answer Notes Did you have a drink contain ing alcohol in the past year? Yes How often did you have a dri nk containing alcohol in the past year? Never (0 point) How many drinks did you have on a typical day when you were drinking in the past year? 1 or 2 drinks (0 point) How often did you have six o r more drinks on one occasion in the past year? Never (0 point) Points 0 Interpretation Negative Problems Problem Type SNOMED Code ICD Code Onset Dates Problem Status W/U Status Risk Notes Problem 583583074 Colon cancer screening (Z12.11) Active confirmed Problem 721946152 Generalized abdominal pain (R10.84) Active confirmed Problem 572093607 Gastroesophageal reflux disease without esophagitis (K21.9) Active confirmed Problem 154962833 Fatty liver (K76.0) Active confirmed Problem History of adenomatous polyp of colon (953017730) History of adenomatous polyp of colon (Z86.0101) Active confirmed Vital Signs Blood pressure diastolic 77 mm Hg 01/27/2025 Height 64 in 01/27/2025 Blood pressure systolic 111 mm Hg 01/27/2025 Weight 163 lbs 01/27/2025 BMI 27.98 kg/m2 01/27/2025 Encounters Encounter Location Date Provider Diagnosis [facility] Outpatient [address] [place] [id number] 02/11/2025 Edin Ureña Jr Colon cancer screening Z12.11 ; History of adenomatous polyp of colon Z86.0101 and Colon polyps K63.5 [facility] [address] [place] [phone] 01/27/2025 Edin Ureña Jr Colon cancer screening Z12.11 ; Gastroesophageal reflux disease without esophagitis K21.9 and History of adenomatous polyp of colon Z86.0101 [facility] [address] [place] [phone] 02/18/2025 Edin Ureña Jr Assessments Encounter Date Diagnosis (ICD Code) Assessment Notes Treatment Notes Treatment Clinical Notes Section Notes 02/11/2025 Colon cancer screening (ICD-10 - Z12.11) 02/11/2025 History of adenomatous polyp of colon (ICD-10 - Z86.0101) 01/27/2025 Colon cancer screening (ICD-10 - Z12.11) At this time, she is doing well. We discussed diet, lifestyle modifications, and weight management regarding the treatment of reflux. We discussed long-term use of proton pump inhibitors and safety. She understands these concepts. She is due for colonoscopy. She is aware of risks and benefits and agrees to proceed. This will be scheduled at her convenience. Follow-up will be pending the results of the procedure. 01/27/2025 Gastroesophageal reflux disease without esophagitis (ICD-10 - K21.9) At this time, she is doing well. We discussed diet, lifestyle modifications, and weight management regarding the treatment of reflux. We discussed long-term use of proton pump inhibitors and safety. She understands these concepts. She is due for colonoscopy. She is aware of risks and benefits and agrees to proceed. This will be scheduled at her convenience. Follow-up will be pending the results of the procedure. 02/11/2025 Colon polyps (ICD-10 - K63.5) 01/27/2025 History of adenomatous polyp of colon (ICD-10 - Z86.0101) At this time, she is doing well. We discussed diet, lifestyle modifications, and weight management regarding the treatment of reflux. We discussed long-term use of proton pump inhibitors and safety. She understands these concepts. She is due for colonoscopy. She is aware of risks and benefits and agrees to proceed. This will be scheduled at her convenience. Follow-up will be pending the results of the procedure. Plan Of Treatment Future Test Test Name Order Date COLONOSCOPY 03/09/2014 COLONOSCOPY 09/08/2019 UPPER GI ENDOSCOPY 09/09/2019 COLONOSCOPY 01/27/2025 Insurance Providers Payer Name Payer Address Payer Phone Subscriber Number Group Number Insured Name Patient Relationship to Insured Coverage Start Date Coverage End Date MEDICARE OF [place] [address] [place] [address] [id number] SHELBY KONG Self - patient is the insured 7 [employer] ATT[employer] CLAIMS [address] [place] [address] [id number] SHELBY KONG Self - patient is the insured Medical (General) History Medical History History ICD Code Colonoscopy 11/18, tubular adenoma, 5-yea r follow-up abdominal obstruction at age 17 Gastroesophageal reflux disease, EGD 3/2 0, no BE/HP tachycardia insomnia hypertriglyceridemia diverticulitis hypertension Surgical History Surgery Date(Month/Year) bladder suspension cataract-lens implants both eyes bunionectomy x2 intestinal perforation on ye ar later requiring reoperation and repeat resection abdominal obstruction at age 17 requiring a laparotomy and resection of bowel cardiac ablation X 2 for atrial tachicar josie
--- OUTSIDE RECORDS SUMMARY | 2025-03-11 15:38 | XMS_ITS | Encounter Summary ---
Author Organization [facility] Address [address] [place] [address] Care Team Providers Care Relief Master Name Role Phone Scooter Garnett MD Primary Care Provider [phone] Reason for Visit * Reason Onset Date Comments Vaginal/vulvar Complaint 03/08/2025 Encounter Details Date Type Department Care Team ([facility] st Contact Info) Description 03/08/2025 Telephone Obstetrics and Gynecology - [address] [place] [address] Gisela Castrejon, [facility] [address] [place] [address] Vaginal/vulvar Complaint Social History Tobacco Use Types Packs/Day Years Used Date Smoking Tobacco: Former Cigarettes Q uit: 11/08/2014 Smokeless Tobacco: Never Alcohol Use Standard Drinks/Week Comments Yes 0 (1 standard drink = 0.6 oz pur e alcohol) Comments Unknown Sex and Gender Information Value Date Recorded Sex Assigned at Not on file Legal Sex Female 2:26 AM EST Gender Identity Not on file Sexual Orientation Not on file documented as of this encounter Progress Notes * Britni Dubose RN - 03/08/2025 4:41 PM EDT Patient reports a lump-like a pimple. She had a recent uti and was prescribed antibiotics. Appointement made. Pt reports pinkish discharge, unsure if from the uti or from the bumps. * Alfreda Coles - 03/08/2025 4:32 PM EDT Chief Complaint/problem: patient noticed vaginal bumps ~2 days ago. Very concerned - please advise How long has the patient had this problem? - Pt???s RELIEF MASTER provider: Gisela Castrejon CNM Last menstrual period (LMP) or EDC (due date): - documented in this encounter Plan of Treatment Upcoming Encounters Date Type Department Care Team (Late st Contact Info) Description 03/31/2025 3:00 PM EDT Office Visit Obstetrics and Gynecology - [address] [phone] Stefani Bright PA [address] [place] [address] documented as of this encounter Visit Diagnoses Not on filedocumented in this encounter Care Teams Relief Master Relationship Specialty Start Date End Date Scooter Garnett MD [address] [place] [address] [address] [place], [place] PCP - General 01/14/08 documented as of this encounter
--- OUTSIDE RECORDS SUMMARY | 2025-03-11 15:38 | XMS_ITS | Patient Health Record ---
Author Organization [facility] Address [address] [place] [address] Care Team Providers Care Flaker Tender Name Role Phone Phillip Frazier MD Primary Care Provider UnaDamian Duran Unavailable [phone] Allergies Allergen (clinical drug ingredient) Drug/Non Drug Allergy documented on EMR Reaction Allergy Type Onset Date Status amoxicillin Amoxicillin hives Drug Allergy Act ke morphine Morphine vomiting Drug Allergy Active Reason For Referral No Information Medications Medication SIG (Take, Route, Frequency, Duration) Notes Start Date End Date Status Gemfibrozil 600 MG Orally once a day Active ibuprofen Active Gabapentin 300 MG 1 capsule Orally Onc e a day; Duration: 10 days 07/01/2018 Not-Takin g Citalopram Hydrobromide 40 MG Orally Active Naproxen PRN Not-Taking Walking Boot/Pneumatic As directed Wear Daily; Duration: Until further notice 07/20/2018 Active Physical Therapy . . . 2-3x/week; Duration: 3-4 weeks 08/20/2018 Active traZODone HCl 100 MG Orally Active Night Splint AFO - L1930 as directed 01/12/2018 Active Omeprazole Active Questran Active Metoprolol Tartrate 50 MG Orally Active Immunizations Vaccine Route Administration Date Status Comme nts Influenza Unknown 06/01/2018 Administered Social History Tobacco Use: Social History Observation Description Date Details (start date - stop date) Light tobacco s moker NA - NA Tobacco Use/Smoking Question Answer Notes Are you a: light tobacco smoker Additional Findings: Tobacco User Light cigarette smoker ((1-9 cigs/day),Trivial cigarette smoker (less than one cigarette/day) Additional Findings: Tobacco Non-User Current no n-smoker Alcohol Screen Question Answer Notes Did you have a drink containing alcohol in the p ast year? Yes Points 0 Interpretation Negative Tobacco use other than smoking: Question Answer Notes Are you an other tobacco user? No Problems Problem Type SNOMED Code ICD Code Onset Dates Problem Status W/U Status Risk Notes Problem Acquired hallux valgus (79989393) Hallux valgus (acquired), left foot (M20.12) Active confirmed Problem Acquired hallux valgus (62828964) Hallux valgus (acquired), right foot (M20.11) Active confirmed Plan Of Treatment Pending Test Test Name Order Date X ray : Foot, left 2V 01/12/2018 X ray : Foot, left 2V 10/12/2018 X ray : Foot, left 2V 10/26/2018 X ray : Foot, left 2V 01/27/2019 X ray : Foot, right 2V 01/27/2019 X ray : Foot, right 2V 01/12/2018 X ray : Foot, right 2V 08/03/2018 X ray : Foot, left 3V 10/05/2018 X ray : Foot, right 3V 08/20/2018 X ray : Foot, right 3V 07/20/2018 Insurance Providers Payer Name Payer Address Payer Phone Subscriber Number Group Number Insured Name Patient Relationship to Insured Coverage Start Date Coverage End Date Medicare National [employer] [address] [place] [address] [id number] Moira Oconnell Self - patient is the insured 7 [employer] [address] [place] [address] [id number] Moira Oconnell Self - patient is the insured Medical (General) History Medical History History ICD Code Arthritis Diverticulosis Heart disease Sciatica Measles Chicken pox Surgical History Surgery Date(Month/Year) appendectomy 17 years old complete abdominal obstruction 17 years old lanced abcess roof of mouth 06/29/18 Jose w/rick 07/16/2018 Jose w/ rick L 10/01/2018 Hospitalization History Reason Date(Month/Year) Prolapsed Vagina- one night stay [facility] 11/30/2018
== END 2025-03-11 16:08 | disposition home or self-care (01) ==
LOC: HO.HPS 15:35
PROVIDERS: PCP Nurse Practitioner Family; Visit Provider Hospitalist
DX: G47.33 Obstructive sleep apnea (adult) (pediatric) (principal); I27.20 Pulmonary hypertension, unspecified; I51.89 Other ill-defined heart diseases; J45.40 Moderate persistent asthma, uncomplicated; J33.9 Nasal polyp, unspecified
CPT/HCPCS: 99214

== ENCOUNTER → 2025-03-11 15:35 | Outpatient (BNVA) | payer MEDICARE, SELFPAY | PROVIDERS: PCP Nurse Practitioner Family; Visit Provider Hospitalist | DX: J45.40 Moderate persistent asthma, uncomplicated (principal); R40.0 Somnolence; G47.33 Obstructive sleep apnea (adult) (pediatric); J33.9 Nasal polyp, unspecified; I27.20 Pulmonary hypertension, unspecified; I51.89 Other ill-defined heart diseases; Z79.899 Other long term (current) drug therapy; Z87.891 Personal history of nicotine dependence | CPT/HCPCS: 99212 ==